=== PATIENT | female | born 1955 | race Caucasian/White ===

== ENCOUNTER 2016-11-04 00:02 | Inpatient (IN) | payer OTHER ==
[~2016-11-04] VITALS: Ht 147.3 cm; Wt 88.5 kg
[~2016-11-04 00:02] MED LIST: ACET50TAOT PO; BUPR150T3 PO; CYMB60CA3 PO; ELIQ5TAB PO; FURO40TA2 PO; OMEP20CA3 PO; PRED20TAB PO; PROA1AER IN; VITA100066 PO; VITA100072 PO; WELL100T2 PO; [UNRECOGNIZED DRUG - CODE] PO
[2016-11-04] MEDS ORDERED: HYDROmorphone HCL 1 MG/ML SYRINGE (J1170) As Ordered ONE (01:30)
[2016-11-04 01:45] LABS: BASO % 0.2 % (0.0-1.0); EOS # 0.1 K/mm3 (0.0-0.50); EOS % 0.5 % (0.0-3.0); LARGE UNSTAINED CELL # 0.2 K/mm3 (0.0-0.4); LARGE UNSTAINED CELL % 1.5 % (0.0-4.0); LYMPH # 0.9 K/mm3 (1.5-4.5); LYMPH % 6.8 % (24.0-44.0); MEAN CORPUSCULAR HEMOGLOBIN 29.1 pg (27.0-33.0); MEAN CORPUSCULAR HGB CONC 31.9 g/dl (32.0-36.5); MONO # 0.3 K/mm3 (0.0-0.8); MONO % 2.4 % (0.0-5.0); NEUTROPHILS % 88.6 % (36.0-66.0); PLATELET COUNT, AUTOMATED 229 k/mm3 (150-450); WHITE BLOOD COUNT 12.4 K/mm3 (4.0-10.0)
[2016-11-04 02:07] LABS: AMYLASE 16 U/L (25-115); ANION GAP 11 MEQ/L (8-16); BLOOD UREA NITROGEN 12 MG/DL (7-18); CARBON DIOXIDE LEVEL 24 MEQ/L (21-32); CHLORIDE LEVEL 105 MEQ/L (98-107); CREATININE FOR GFR 0.92 MG/DL (0.55-1.02); GLOMERULAR FILTRATION RATE > 60.0 (>45); GLUCOSE, FASTING 152 MG/DL (80-110); POTASSIUM SERUM 3.7 MEQ/L (3.5-5.1); SODIUM LEVEL 140 MEQ/L (136-145)
[2016-11-04] MEDS ORDERED: ISOVUE-370 76% 100ML VIAL (Q9967) As Ordered ONE (03:18)
--- NOTE | 2016-11-04 04:20 | REPUSA ---
CLINICAL HISTORY: Abdominal pain. TECHNIQUE: Multiple axial, sagittal and coronal CT images were obtained through the abdomen and pelvi s after administration of intravenous contrast material. COMMENTS: Comparison is made to the prior exam performed on 01/17/2016. Thickened mid aspect of the sigmoid colon. Associated mid sigmoid perforation and a 3.5x4.1 cm perisi gmoid abscess formation. Free air densities are limited to the perisigmoid fat. No other areas of pne umoperitoneum identified. Diffuse inflammatory thickening of the abdominal and pelvic fat. Diffusely dilated fluid filled small bowels. Diffuse thickening of the small bowel loops. Changes from prior gastric bypass surgery. Mild diffuse thickening of the wall of the bladder. Small amount of free fluid in the pelvis. The liver is mildly enlarged with decreased attenuation without mass or defect. There is no intra or extrahepatic biliary ductal dilatation. The spleen is normal. The gallbladder contains multiple galls tones. The pancreas is of normal contour and attenuation characteristics. There is no evidence of adr enal mass. Both kidneys demonstrate prompt and equal nephrograms. The kidneys are normal in size, shape and conf iguration. There is no evidence of renal or ureteral mass. No renal or ureteral calculi are identifie d. There is no hydroureter or hydronephrosis. No evidence for appendicitis. There is no evidence of intrinsic or extrinsic bladder mass. Images of the lung bases show no evidence of pleural or parenchymal mass. There are no pleural effusi ons. The bony structures are free of lytic or blastic lesions. Multilevel degenerative changes are seen in volving the thoracolumbar spine. Scattered calcifications are seen involving the aorta and major bran ches compatible with atherosclerosis. IMPRESSION: Mid sigmoid perforation. Probably perforated acute diverticulitis. Associated/underlying neoplastic p athology is not excluded. Adjacent free air densities which are limited to the perisigmoid fat. Findi ngs were not present on the prior exam. No other areas of pneumoperitoneum. Perisigmoid abscess formation. This was not present on prior exam. Small amount of free fluid in the pelvis. Diffuse inflammatory abdominal and pelvic fat stranding. Distended gallbladder. Multiple gallstones. Hepatomegaly with fatty liver infiltration. Thank you for your kind referral of this patient.
[2016-11-04 04:36] LABS: CALCIUM OXALATE CRYSTALS SMALL
[2016-11-04] MEDS ORDERED: BUPR15TASR PO (04:49)
[2016-11-04] MEDS ORDERED: GUAI1TAB PO (04:49)
[2016-11-04] MEDS ORDERED: LEVA500T PO (04:49)
[2016-11-04] MEDS ORDERED: ELIQ5TAB PO (04:49)
[2016-11-04] MEDS ORDERED: ALBU17IN INH (04:49)
[2016-11-04] MEDS ORDERED: ZOSYN 3.375 GM VIAL (J2543) As Ordered ONE (04:51)
[2016-11-04] MEDS ORDERED: HEPARIN SOD (PORCINE) 5000 UNITS/ML VIAL SC SCH (06:00)
[2016-11-04] MEDS ORDERED: MORPHINE 2 MG/ML 1ML SYRINGE As Ordered ONE (06:20)
[2016-11-04] MEDS ORDERED: metroNIDAZOLE/NACL 500MG(5MG/ML)100 ML BAG (S0030) As Ordered ONE ×2 (07:03→13:18)
[2016-11-04] MEDS: LR 1,000 ML IV SCH ×2 (08:40→18:38)
[2016-11-04] MEDS ORDERED: KETOROLAC 30 MG/ML VIAL (J1885) IV PRN (08:45)
[2016-11-04] MEDS ORDERED: NORCO, ANEXSIA 5/325MG TABLET (HYDROcodone/ACETAMINOPHEN) PO PRN (08:45)
[2016-11-04] MEDS ORDERED: ONDANSETRON 4MG/2ML VIAL (J2405) IV PRN (08:45)
[2016-11-04] MEDS ORDERED: MOM 30ML SUSPENSION UDC PO PRN (08:45)
[2016-11-04] MEDS ORDERED: MORPHINE 2 MG/ML 1ML SYRINGE IV PRN (08:45)
[2016-11-04] MEDS: buPROPion **SR TABLET** (ZYBAN) 150MG PO SCH (09:00)
[2016-11-04] MEDS: PANTOPRAZOLE 40MG TAB (PROTONIX) PO SCH (09:00)
[2016-11-04] MEDS: SENOKOT S TAB PO SCH ×2 (09:00→21:07)
[2016-11-04] MEDS: CYANOCOBALAMIN 500 MCG TAB PO SCH ×2 (09:00→17:37)
[2016-11-04] MEDS: CIPROFLOXACIN 400 MG in APPROPRIATE DILUENT 1 EA IV SCH ×2 (09:00→21:06)
[2016-11-04 09:34] LABS: INR 1.31
[2016-11-04] MEDS ORDERED: KETOROLAC 30 MG/ML VIAL (J1885) As Ordered ONE (09:55)
[2016-11-04 11:35] VITALS: BP 108/56
[2016-11-04] MEDS ORDERED: ALBUTEROL 90 MCG/ACT 8GM HFA INHALER INH PRN (12:15)
[2016-11-04] MEDS ORDERED: guaiFENesin ER 600 MG TAB PO PRN (12:15)
[2016-11-04] MEDS: metroNIDAZOLE 500 MG in APPROPRIATE DILUENT 1 EA IV SCH ×3 (13:00→23:50)
--- NOTE | 2016-11-04 13:24 | EDDOCDS ---
Physician Documentation [facility] Name: Melissa Peck Age: 61 yrs Sex: Female : 1955 Arrival Date: 11/04/2016 Time: 00:02 Bed Admit Hold Private MD: Disposition: 11/04/16 05:19 Hospitalization ordered by Satya Wall for Inpatient Admission. Preliminary diagnosis is Diverticulitis of large intestine with perforation and abscess without bleeding. - Bed requested for M PED. - Status is Inpatient Admission. hs1 - Condition is Stable. - Problem is new. - Symptoms have improved. Historical: - Allergies: Latex; - Home Meds: 1. Cymbalta 60 mg Oral cpDR 1 cap once daily 2. omeprazole 20 mg Oral TbEC daily 3. Wellbutrin 100 mg Oral tab 2 times per day 4. Eliquis 5 mg oral tab 1 tab 2 times per day 5. Levaquin 500 mg Oral tab 1 tab once daily 6. Mucinex 600 mg oral Ta12 1 tab every 12 hours - PMHx: Anxiety; GERD; Pneumonia; PE; - PSHx: ; Right knee arthroscopic surgery; Gastric Bypass; - Social history: Smoking status: Patient states was never smoker of tobacco. No barriers to communication noted, The patient speaks fluent [place], Speaks appropriately for age. - Family history: Not pertinent. - : The pt / caregiver states he / she is on anticoagulants: Eliquis Home medication list is obtained from the patient. - Exposure Risk Screening:: None identified. Vital Signs: 11/04 00:24 BP 106 / 53; Pulse 63; Resp 20; Temp 97.0(O); Pulse Ox 94% on R/A; Weight 88.45 kg / jmb 195 lbs (R); Height 4 ft. 10 in. (147.32 cm) (R); Pain 10/10; 02:05 BP 146 / 69; Pulse 83; Resp 18 S; Pulse Ox 100% on R/A; Pain 2/10; af2 06:21 BP 130 / 73; Pulse 107; Resp 18; Temp 99.3(O); Pulse Ox 94% on R/A; dinorah 10:40 BP 121 / 57; Pulse 102; Resp 18; Pulse Ox 96% ; Pain 1/10; hs1 12:45 BP 119 / 59; Pulse 85; Resp 18; Temp 95.6; Pulse Ox 95% ; mb9 00:24 Body Mass Index 40.75 (88.45 kg, 147.32 cm) halie MDM: 00:45 IV Saline Lock ordered. cs11 00:45 NS 0.9% 1000 ml IV at bolus once ordered. cs11 00:45 Dilaudid - HYDROmorphone 0.5 mg IVP once ordered. cs11 00:46 CBC with Diff Ordered. EDMS 00:46 MED Profile Ordered. EDMS 00:46 Lipase Ordered. EDMS 00:46 Amylase Ordered. EDMS 00:46 Urinalysis Ordered. EDMS 00:46 Urine Culture Ordered. EDMS 00:46 Lactic Acid (Zayas tube on ice) Ordered. EDMS 01:22 Financial registration complete. hs2 01:27 [facility] Payment Agreement was scanned into [employer] and attached to record. hs2 01:49 CBC with Diff Reviewed. cs11 02:16 MED Profile Reviewed. cs11 02:16 Lipase Reviewed. cs11 02:16 Amylase Reviewed. cs11 02:16 Lactic Acid (Zayas tube on ice) Reviewed. cs11 02:18 CT ABD & PELVIS: IV and Oral Contrast Ordered. EDMS 04:10 Dilaudid - HYDROmorphone 0.5 mg IVP once ordered. af2 04:25 metroNIDAZOLE 500 mg IV at 100 mL/hr once over 60 mins ordered. cs11 04:25 Piperacillin-Tazobactam 3.375 grams IVPB once over 30 mins; dilute in 50mL of NS or D5W cs11 ordered. 04:33 BED REQUEST+ADM ordered. EDMS 05:07 Urinalysis Reviewed. cs11 05:07 CT ABD & PELVIS: IV and Oral Contrast Reviewed. cs11 05:22 Admission Orders was scanned into [employer] and attached to record. tmm1 06:23 morphine 2 mg IVP once ordered. af2 08:11 LR Solution 1000 ml IV at 100 mL/hr once ordered. mcp 08:46 Admission / Observation Status ordered. EDMS 08:47 NPO DIET ordered. EDMS 08:47 PROTHROMBIN TIME PROFILE\E\INR Ordered. EDMS 09:36 T-Sheet-- Draft Copy was scanned into [employer] and attached to record. gb 12:04 CLEAR LIQUIDS DIET ordered. EDMS Administered Medications: 01:34 Drug: NS 0.9% 1000 ml [sodium chloride 0.9 % intravenous solution] Route: IV; Rate: af2 bolus; Site: left hand; 01:35 Drug: Dilaudid - HYDROmorphone 0.5 mg [hydromorphone 1 mg/mL injection syringe (0.5 af2 mL)] Route: IVP; Site: left hand; 06:17 Follow up: Response: Pain is decreased af2 04:17 Drug: Dilaudid - HYDROmorphone 0.5 mg [hydromorphone 1 mg/mL injection syringe (0.5 af2 mL)] Route: IVP; Site: right hand; 06:23 Follow up: Response: Pain is decreased af2 05:05 Drug: Piperacillin-Tazobactam 3.375 grams [piperacillin-tazobactam 3.375 gram af2 intravenous solution] Route: IVPB; Infused Over: 30 mins; Site: left hand; 06:57 Follow up: IV Status: Completed infusion af2 06:37 Drug: morphine 2 mg [morphine 2 mg/mL intravenous cartridge (1 mL)] Route: IVP; Site: af2 left hand; 06:57 Follow up: Response: Pain is decreased af2 07:08 Drug: metroNIDAZOLE 500 mg [metronidazole 500 mg/100 mL-sodium chloride(iso) af2 intravenous piggyback] Route: IV; Rate: 100 mL/hr; Infused Over: 60 mins; Site: left hand; 08:11 Drug: LR 1000 ml [lactated ringers intravenous solution] Route: IV; Rate: 100 mL/hr; [facility] Site: left hand; Signatures: Dispatcher [employer] Daxa Mcdonald RN RN [facility] Magdalena Reyna, Reg Reg Dinorah Keller RN RN hs1 Austin Grossman DO DO cs11 McLear, Melissa, CHARGE ENTRY CHARGE ENTRY tmm1 Merlin CrowellRN RN Annabel Buitrago RN RN sls2 Yulissa Parikh RN RN af2 Lizette Diaz, Reg Reg hs2 The chart was reviewed and I authenticate all verbal orders and agree with the evaluation and treatment provided.Corrections: (The following items were deleted from the chart) 12:13 08:46 CT GUIDE PERC DRAIN ABSCESS ordered. EDOK EDMS Attachments: 01:27 [facility] [place] hs2 05:22 Admission Orders tmm1 09:36 T-Sheet-- Draft Copy gb MTDD
--- NOTE | 2016-11-04 13:24 | EDDOCDS ---
Nurse's Notes [facility] Name: Melissa Peck Age: 61 yrs Sex: Female : 1955 Arrival Date: 11/04/2016 Time: 00:02 Bed Admit Hold Private MD: Diagnosis: Diverticulitis of large intestine with perforation and abscess without bleeding Presentation: 11/04 00:21 Presenting complaint: Patient states: Patient reports abdominal pain. Patient reports jmb symptoms started yesterday. Patient reports being at primary care provider's office today, also has pneumonia. Patient reports primary care provider reports its from the bibasilar pneumonia. Presenting complaint: Patient states: Patient reports that she feels it is from constipation but has not taken anything. Adult Sepsis Screening: The patient does not have new or worsening altered mentation. Patient's respiratory rate is less than 22. Systolic blood pressure is greater than 100. Patient has a qSOFA score of 0- Negative Sepsis Screen. Suicide/Homicide risk assessment- the patient denies having any suicidal and/or homicidal ideations and does not present with any other emotional, behavioral or mental health complaints. Status: Patient is not a public service director or dependent. Transition of care: patient was not received from another setting of care. 00:21 Acuity: CRYS Level 3 jmb 00:21 Method Of Arrival: Wheelchair jmb Triage Assessment: 00:24 General: Appears uncomfortable. Pain: Location: abdomen Pain currently is 10 out of 10 jmb on a pain scale. HIV screening NA for this visit Offered previously. Neurological: Level of Consciousness is awake, alert, obeys commands, Oriented to person, place, time, Speech is normal, Facial symmetry appears normal, Facial symmetry: tongue is midline. Respiratory: Airway is patent Respiratory effort is even, unlabored, Respiratory pattern is regular, symmetrical. GI: Abdomen is non- distended. Derm: Skin is pink, warm & dry. Musculoskeletal: Range of motion intact in all extremities. Historical: - Allergies: Latex; - Home Meds: 1. Cymbalta 60 mg Oral cpDR 1 cap once daily 2. omeprazole 20 mg Oral TbEC daily 3. Wellbutrin 100 mg Oral tab 2 times per day 4. Eliquis 5 mg oral tab 1 tab 2 times per day 5. Levaquin 500 mg Oral tab 1 tab once daily 6. Mucinex 600 mg oral Ta12 1 tab every 12 hours - PMHx: Anxiety; GERD; Pneumonia; PE; - PSHx: ; Right knee arthroscopic surgery; Gastric Bypass; - Social history: Smoking status: Patient states was never smoker of tobacco. No barriers to communication noted, The patient speaks fluent Honduran, Speaks appropriately for age. - Family history: Not pertinent. - : The pt / caregiver states he / she is on anticoagulants: Eliquis Home medication list is obtained from the patient. - Exposure Risk Screening:: None identified. Screenin:36 Screening information is obtained from the patient. Fall risk: No risks identified. af2 Assistance ADL's: requires no assistance with activities of daily living. Abuse/DV Screen: The patient / caregiver reports he/she is: not in a situation that causes fear, pain or injury. Nutritional screening: No deficits noted. Advance Directives: Currently, there is no health care proxy. home support is adequate. Assessment: 01:35 General: Appears in no apparent distress, comfortable, Behavior is appropriate for age, af2 cooperative. Neurological: Level of Consciousness is awake, alert, obeys commands, Oriented to person, place, time. Respiratory: Airway is patent Respiratory effort is even, unlabored. GI: Abdomen is non- distended Bowel sounds present X 4 quads. Abd is soft and non tender X 4 quads. Derm: Skin is normal. 02:30 General: Appears in no apparent distress, comfortable, Behavior is appropriate for age, af2 cooperative. Neurological: Level of Consciousness is awake, alert, obeys commands. Respiratory: Airway is patent Respiratory effort is even, unlabored. GI: Reports lower abdominal pain, upper abdominal pain. Derm: Skin is normal. 03:34 General: pt transported to ct at this time, tolerated procedure well. piv is patent. af2 assisted with ambulation to bathroom at this time. . 04:30 General: Appears in no apparent distress, comfortable, Behavior is appropriate for age, af2 cooperative. Neurological: Level of Consciousness is awake, alert, obeys commands, Oriented to person, place, time. GI: Reports lower abdominal pain, upper abdominal pain. Derm: Skin is normal. 05:30 General: Appears in no apparent distress, comfortable, Behavior is appropriate for age, af2 cooperative. Neurological: Level of Consciousness is awake, alert, obeys commands, Oriented to person, place, time. Respiratory: Airway is patent Respiratory effort is even, unlabored. GI: Reports lower abdominal pain, upper abdominal pain. Derm: Skin is normal. 06:38 General: Appears in no apparent distress, Behavior is cooperative, pt medicated for af2 pain per admit orders.. Neurological: Level of Consciousness is awake, alert, obeys commands. Respiratory: Airway is patent Respiratory effort is even, unlabored. Derm: Skin is normal. 07:54 General: Appears in no apparent distress, comfortable, Behavior is cooperative. mcp Neurological: No deficits noted. Respiratory: Airway is patent Respiratory effort is even, unlabored. GI: Abdomen is non- distended. Derm: Skin is pink, warm & dry. 08:45 General: Appears in no apparent distress, comfortable, Behavior is appropriate for age, hs1 cooperative, Patient resting in stretcher with no needs at present. Call szymanski within reach, family at bedside. . 09:45 General: Patient up and ambulating to rest room at this time. Patient states pain hs1 returning 4/10 at present. Pain medication to be administered per orders. Patient also to take morning medications at this time. Patient requests to rest again at this time. Nursing to continue to monitor. . 10:35 Reassessment: Patient states feeling better. Patient states symptoms have improved. hs1 General: Appears in no apparent distress, comfortable, Behavior is appropriate for age, cooperative. Pain: Location: abdomen Pain currently is 1 out of 10 on a pain scale. Respiratory: No deficits noted. GI: Denies nausea. 11:45 General: Appears in no apparent distress, comfortable, Behavior is appropriate for age, hs1 cooperative. Pain: Location: abdomen. Neurological: Level of Consciousness is awake, alert, obeys commands. Respiratory: Airway is patent Respiratory effort is even, unlabored. Derm: Skin is pink, warm & dry. normal. 12:38 Reassessment: Patient appears in no apparent distress at this time. Patient states hs1 feeling better. Patient states symptoms have improved. patient resting at present. No needs made known. . 13:10 Reassessment: Patient appears in no apparent distress at this time. Patient states hs1 feeling better. Patient states symptoms have improved. Pain: Location: abdomen Pain currently is 1 out of 10 on a pain scale. Vital Signs: 00:24 BP 106 / 53; Pulse 63; Resp 20; Temp 97.0(O); Pulse Ox 94% on R/A; Weight 88.45 kg (R); [facility] Height 4 ft. 10 in. (147.32 cm) (R); Pain 10/10; 02:05 BP 146 / 69; Pulse 83; Resp 18 S; Pulse Ox 100% on R/A; Pain 2/10; af2 06:21 BP 130 / 73; Pulse 107; Resp 18; Temp 99.3(O); Pulse Ox 94% on R/A; dinorah 10:40 BP 121 / 57; Pulse 102; Resp 18; Pulse Ox 96% ; Pain 1/10; hs1 12:45 BP 119 / 59; Pulse 85; Resp 18; Temp 95.6; Pulse Ox 95% ; mb9 00:24 Body Mass Index 40.75 (88.45 kg, 147.32 cm) [facility] Vitals: 00:24 Log In Time: November 04, 2016 at 00:00. [facility] ED Course: 00:03 Patient visited by Lm Noriega Reg. pm4 00:03 Patient moved to Waiting pm4 00:22 Triage Initiated b 00:29 Justine Sawyer,GUS is Primary Nurse. jmb 00:29 Yulissa Parikh RN is Primary Nurse. jmb 00:29 Patient moved to 14 [facility] 00:31 Austin Grossman DO is Attending Physician. cs11 00:31 Patient visited by Austin Grossman DO. cs11 01:05 Patient visited by Carmella Lmab, Blade Changer. jlm 01:05 Warm blanket given. jlm 01:27 [facility] Payment Agreement was scanned into [employer] and attached to record. hs2 01:29 Primary Nurse role handed off by Justine Sawyer,GUS dinorah 01:34 Lactic Acid (Zayas tube on ice) Sent. af2 01:34 Amylase Sent. af2 01:34 Lipase Sent. af2 01:34 MED Profile Sent. af2 01:34 CBC with Diff Sent. af2 01:36 The patient / caregiver is instructed regarding the plan of care and ED course. af2 01:36 Inserted saline lock: 22 gauge in left hand The patient tolerated the procedure well. af2 01:37 Patient visited by Yulissa Parikh RN. af2 02:06 Patient visited by Yulissa Parikh RN. af2 02:51 Patient visited by Yulissa Parikh RN. af2 02:52 Patient visited by Yulissa Parikh RN. af2 03:34 Patient visited by Yulissa Parikh RN. af2 03:35 Patient visited by Yulissa Parikh RN. af2 03:52 Patient visited by Yulissa Parikh RN. af2 03:52 Urine Culture Sent. af2 03:52 Urinalysis Sent. af2 04:25 Patient visited by Yulissa Parikh RN. af2 04:26 Patient moved to Admit Hold sls1 04:27 Patient moved to 14 sls1 04:54 CT ABD & PELVIS: IV and Oral Contrast Returned. EDMS 05:18 Satya Wall DO is Hospitalizing Provider. cs11 05:21 Patient moved to Admit Hold sls1 05:22 Admission Orders was scanned into [employer] and attached to record. tmm1 05:50 Patient visited by Yulissa Parikh RN. af2 06:21 Patient visited by Taty Haque PCA. dinorah 06:37 Discontinued IV lock intact, bleeding controlled, pressure dressing applied, No af2 redness/swelling at site. No procedures done that require assistance. 06:37 Inserted saline lock: 20 gauge in left hand The patient tolerated the procedure well. af2 06:38 Patient visited by Yulissa Parikh RN. af2 06:57 Mary Reid,RN is Primary Nurse. ck1 07:08 Patient visited by Yulissa Parikh RN. af2 07:22 Antoinette Sawyer RN is Primary Nurse. kcs 07:22 Patient moved to 18 kcs 07:55 Patient visited by Daxa Sanchez RN. mcp 07:55 IV is intact, is free of redness or swelling. with fluids infusing freely. mcp 09:03 Patient moved to Admit Hold js13 09:13 Primary Nurse role handed off by Yulissa Parikh RN kr3 09:13 Primary Nurse role handed off by Antoinette Sawyer RN kr3 09:36 T-Sheet-- Draft Copy was scanned into [employer] and attached to record. gb 10:53 Dinorah Keller, GUS is Primary Nurse. hs1 11:28 Patient visited by Dinorah Keller RN. hs1 11:44 Patient visited by Dinorah Keller RN. hs1 Administered Medications: 01:34 Drug: NS 0.9% 1000 ml [sodium chloride 0.9 % intravenous solution] Route: IV; Rate: af2 bolus; Site: left hand; 01:35 Drug: Dilaudid - HYDROmorphone 0.5 mg [hydromorphone 1 mg/mL injection syringe (0.5 af2 mL)] Route: IVP; Site: left hand; 06:17 Follow up: Response: Pain is decreased af2 04:17 Drug: Dilaudid - HYDROmorphone 0.5 mg [hydromorphone 1 mg/mL injection syringe (0.5 af2 mL)] Route: IVP; Site: right hand; 06:23 Follow up: Response: Pain is decreased af2 05:05 Drug: Piperacillin-Tazobactam 3.375 grams [piperacillin-tazobactam 3.375 gram af2 intravenous solution] Route: IVPB; Infused Over: 30 mins; Site: left hand; 06:57 Follow up: IV Status: Completed infusion af2 06:37 Drug: morphine 2 mg [morphine 2 mg/mL intravenous cartridge (1 mL)] Route: IVP; Site: af2 left hand; 06:57 Follow up: Response: Pain is decreased af2 07:08 Drug: metroNIDAZOLE 500 mg [metronidazole 500 mg/100 mL-sodium chloride(iso) af2 intravenous piggyback] Route: IV; Rate: 100 mL/hr; Infused Over: 60 mins; Site: left hand; 08:11 Drug: LR 1000 ml [lactated ringers intravenous solution] Route: IV; Rate: 100 mL/hr; mcp Site: left hand; Order Results: Lab Order: CBC with Diff; SPEC'M 11/04/16 01:37 Test: WHITE BLOOD COUNT; Value: 12.4; Range: 4.0-10.0; Abnormal: Above high normal; Units: K/mm3; Status: F Test: RED BLOOD COUNT; Value: 4.87; Range: 4.00-5.40; Units: M/mm3; Status: F Test: HEMOGLOBIN; Value: 14.1; Range: 12.0-16.0; Units: g/dl; Status: F Test: HEMATOCRIT; Value: 44.3; Range: 36.0-47.0; Units: %; Status: F Test: MEAN CORPUSCULAR VOLUME; Value: 91.0; Range: 80.0-96.0; Units: fl; Status: F Test: MEAN CORPUSCULAR HEMOGLOBIN; Value: 29.1; Range: 27.0-33.0; Units: pg; Status: F Test: MEAN CORPUSCULAR HGB CONC; Value: 31.9; Range: 32.0-36.5; Abnormal: Below low normal; Units: g/dl; Status: F Test: RED CELL DISTRIBUTION WIDTH; Value: 14.0; Range: 11.5-14.5; Units: %; Status: F Test: PLATELET COUNT, AUTOMATED; Value: 229; Range: 150-450; Units: k/mm3; Status: F Test: NEUTROPHILS %; Value: 88.6; Range: 36.0-66.0; Abnormal: Above high normal; Units: %; Status: F Test: LYMPH %; Value: 6.8; Range: 24.0-44.0; Abnormal: Below low normal; Units: %; Status: F Test: MONO %; Value: 2.4; Range: 0.0-5.0; Units: %; Status: F Test: EOS %; Value: 0.5; Range: 0.0-3.0; Units: %; Status: F Test: BASO %; Value: 0.2; Range: 0.0-1.0; Units: %; Status: F Test: LARGE UNSTAINED CELL %; Value: 1.5; Range: 0.0-4.0; Units: %; Status: F Test: NEUTROPHILS #; Value: 11.0; Range: 1.8-7.7; Abnormal: Above high normal; Units: K/mm3; Status: F Test: LYMPH #; Value: 0.9; Range: 1.5-4.5; Abnormal: Below low normal; Units: K/mm3; Status: F Test: MONO #; Value: 0.3; Range: 0.0-0.8; Units: K/mm3; Status: F Test: EOS #; Value: 0.1; Range: 0.0-0.50; Units: K/mm3; Status: F Test: BASO #; Value: 0.0; Range: 0.0-0.2; Units: K/mm3; Status: F Test: LARGE UNSTAINED CELL #; Value: 0.2; Range: 0.0-0.4; Units: K/mm3; Status: F Lab Order: MED Profile; [facility] 11/04/16 01:37 Test: GLUCOSE, FASTING; Value: 152; Range: 80-110; Abnormal: Above high normal; Units: MG/DL; Status: F Test: BLOOD UREA NITROGEN; Value: 12; Range: 7-18; Units: MG/DL; Status: F Test: CREATININE FOR GFR; Value: 0.92; Range: 0.55-1.02; Units: MG/DL; Status: F Test: GLOMERULAR FILTRATION RATE; Value: > 60.0; Range: >45; Status: F Test: SODIUM LEVEL; Value: 140; Range: 136-145; Units: MEQ/L; Status: F Test: POTASSIUM SERUM; Value: 3.7; Range: 3.5-5.1; Units: MEQ/L; Status: F Test: CHLORIDE LEVEL; Value: 105; Range: 98-107; Units: MEQ/L; Status: F Test: CARBON DIOXIDE LEVEL; Value: 24; Range: 21-32; Units: MEQ/L; Status: F Test: ANION GAP; Value: 11; Range: 8-16; Units: MEQ/L; Status: F Test: CALCIUM LEVEL; Value: 9.0; Range: 8.8-10.2; Units: MG/DL; Status: F Test Note: ; Units are mL/min/1.73 m2 Chronic Kidney Disease Staging per NKF: Stage I & II GFR >=60 Normal to Mildly Decreased Stage III GFR 30-59 Moderately Decreased Stage IV GFR 15-29 Severely Decreased Stage V GFR <15 Very Little GFR Left ESRD GFR <15 on POLEYARD SUPERVISOR Lab Order: Lipase; 11/04/16 01:37 Test: LIPASE; Value: 57; Range: 73-393; Abnormal: Below low normal; Units: U/L; Status: F Lab Order: Amylase; [facility] 11/04/16 01:37 Test: AMYLASE; Value: 16; Range: 25-115; Abnormal: Below low normal; Units: U/L; Status: F Lab Order: Urinalysis; [facility] 11/04/16 03:47 Test: APPEARANCE, URINE; Value: HAZY; Range: CLEAR; Status: F Test: COLOR, URINE; Value: YELLOW; Range: YELLOW; Status: F Test: PH,URINE; Value: 5.0; Range: 5.0-9.0; Units: UNITS; Status: F Test: SPECIFIC GRAVITY URINE AUTO; Value: 1.043; Range: 1.002-1.035; Status: F Test: PROTEIN, URINE AUTO; Value: NEGATIVE; Range: NEGATIVE; Units: mg/dL; Status: F Test: GLUCOSE, URINE (UA) AUTO; Value: NEGATIVE; Range: NEGATIVE; Units: mg/dL; Status: F Test: KETONE, URINE AUTO; Value: 2+; Range: NEGATIVE; Abnormal: Above high normal; Units: mg/dL; Status: F Test: UROBILINOGEN, URINE AUTO; Value: 4.0; Range: 0.0-2.0; Abnormal: Above high normal; Units: mg/dL; Status: F Test: BILIRUBIN, URINE AUTO; Value: NEGATIVE; Range: NEGATIVE; Status: F Test: NITRITE, URINE AUTO; Value: NEGATIVE; Range: NEGATIVE; Status: F Test: LEUKOCYTE ESTERASE, URINE AUTO; Value: TRACE; Range: NEGATIVE; Abnormal: Above high normal; Status: F Test: BLOOD, URINE BLOOD; Value: 2+; Range: NEGATIVE; Abnormal: Above high normal; Status: F Test: WBC, URINE AUTO; Value: 9; Range: 0-3; Abnormal: Above high normal; Units: /HPF; Status: F Test: RBC, URINE AUTO; Value: 13; Range: 0-3; Abnormal: Above high normal; Units: /HPF; Status: F Test: BACTERIA, URINE AUTO; Value: NEGATIVE; Range: NEGATIVE; Status: F Test: SQUAMOUS EPITHELIAL CELL UR AU; Value: 3; Range: 0-6; Units: /HPF; Status: F Test: MUCUS, URINE; Value: SMALL; Range: NEGATIVE; Status: F Test: HYALINE CAST, URINE AUTO; Value: 0; Range: 0-1; Units: /LPF; Status: F Test: CALCIUM OXALATE CRYSTALS; Value: SMALL; Range: NONE; Status: F Lab Order: Lactic Acid (Zayas tube on ice); SPEC'M 01/24/17 01:37 Test: LACTIC ACID LEVEL, LACTATE; Value: 1.9; Range: 0.4-2.0; Units: MMOL/L; Status: F Lab Order: PROTHROMBIN TIME PROFILE\E\INR; SPEC'M 11/04/16 09:17 Test: PROTHROMBIN TIME; Value: 16.4; Range: 12.3-14.5; Abnormal: Above high normal; Units: SECONDS; Status: F Test: INR; Value: 1.31; Status: F Test Note: ; THERAPUTIC HUMAN INR VALUES INDICATIONS NORMAL RANGES PROPHYLAXIS/TREATMENT OF: VENOUS THROMBOSIS 2.0-3.0 PULMONARY EMBOLISM 2.0-3.0 PREVENTION OF SYSTEMIC EMBOLISM FROM: TISSUE HEART VALVES 2.0-3.0 ACUTE MYOCARDIAL INFARCTION 2.0-3.0 VALVULAR HEART DISEASE 2.0-3.0 ATRIAL FIBRILLATION 2.0-3.0 MECHANICAL VALVES(HIGH RISK) 2.5-3.5 RECURRENT MYOCARDIAL INFARCTION 2.5-3.5 Radiology Order: CT ABD & PELVIS: IV and Oral Contrast Test: CT ABD & PELVIS: IV and Oral Contrast REASON FOR EXAMINATION: Abdomen Pain; ; CLINICAL HISTORY: Abdominal pain.; TECHNIQUE: Multiple axial, sagittal and coronal CT images were obtained through the abdomen and pelvi; s after administration of intravenous contrast material.; COMMENTS:; Comparison is made to the prior exam performed on 01/17/2016.; Thickened mid aspect of the sigmoid colon. Associated mid sigmoid perforation and a 3.5x4.1 cm perisi; gmoid abscess formation. Free air densities are limited to the perisigmoid fat. No other areas of pne; umoperitoneum identified. Diffuse inflammatory thickening of the abdominal and pelvic fat.; Diffusely dilated fluid filled small bowels.; Diffuse thickening of the small bowel loops.; Changes from prior gastric bypass surgery.; Mild diffuse thickening of the wall of the bladder.; Small amount of free fluid in the pelvis.; The liver is mildly enlarged with decreased attenuation without mass or defect. There is no intra or; extrahepatic biliary ductal dilatation. The spleen is normal. The gallbladder contains multiple galls; tones. The pancreas is of normal contour and attenuation characteristics. There is no evidence of adr; enal mass.; Both kidneys demonstrate prompt and equal nephrograms. The kidneys are normal in size, shape and conf; iguration. There is no evidence of renal or ureteral mass. No renal or ureteral calculi are identifie; d. There is no hydroureter or hydronephrosis.; No evidence for appendicitis.; There is no evidence of intrinsic or extrinsic bladder mass.; Images of the lung bases show no evidence of pleural or parenchymal mass. There are no pleural effusi; ons.; The bony structures are free of lytic or blastic lesions. Multilevel degenerative changes are seen in; volving the thoracolumbar spine. Scattered calcifications are seen involving the aorta and major bran; ches compatible with atherosclerosis.; IMPRESSION:; Mid sigmoid perforation. Probably perforated acute diverticulitis. Associated/underlying neoplastic p; athology is not excluded. Adjacent free air densities which are limited to the perisigmoid fat. Findi; ngs were not present on the prior exam.; No other areas of pneumoperitoneum.; Perisigmoid abscess formation. This was not present on prior exam.; Small amount of free fluid in the pelvis.; Diffuse inflammatory abdominal and pelvic fat stranding.; Distended gallbladder.; Multiple gallstones.; Hepatomegaly with fatty liver infiltration.; Thank you for your kind referral of this patient.; ; Outcome: 05:19 Decision to Hospitalize by Provider. cs11 13:11 Discharge Assessment: Patient awake, alert and oriented x 3. No cognitive and/or hs1 functional deficits noted. Patient verbalized understanding of disposition instructions. patient administered narcotics - no. The following High Risk Discharge criteria are identified: None. Admitted to Pediatrics accompanied by nurse, accompanied by tech, family with patient, via wheelchair, with chart. Condition: stable. CT Study completed. Property :Personal belongings accompany Pt. 13:23 Patient left the ED. hs1 Signatures: Dispatcher [employer] EDMS Keily Myers RN Daxa Chambers RN RN mcp Barnhardt, Gloria, Reg Reg Mary Sanders RN RN ck1 Ariadne Saenz RN RN kr3 Dinorah Keller RN RN hs1 Taty Haque, COTTON SAMPLER COTTON SAMPLER dinorah Danyell Farooq RN RN sls1 Kala Renner RN RN js13 Austin Grossman DO DO cs11 McLear, Melissa, COTTON SAMPLER COTTON SAMPLER tmm1 Merlin Crowell,RN RN Carmella Lockwood, Blade Changer Unit sravanm Todd Zelaya,RN RN mb9 Yulissa Parikh RN RN af2 Lizette Diaz, Reg Reg hs2 Lm Noriega, Reg Reg pm4 MTDD
[2016-11-04 13:45] VITALS: BP 123/54
--- NOTE | 2016-11-04 16:23 | HPE ---
DATE OF ADMISSION: 11/04/2016 CHIEF COMPLAINT: Abdominal pain. HISTORY OF PRESENT ILLNESS: The patient is a 61-year-old female presents with some shortness of breath that started last Thursday. She went to her primary who evaluated her and thought that she had bilateral pneumonias which she has had previously so she was started on Levaquin outpatient and told to followup as needed. Over the weekend she started to feel worse. No fevers. No nausea or vomiting but she started to develop lower abdominal pain that started to radiate towards the left side. With the pain getting worse she came into the emergency room thinking that she may have been constipated. However, CT scan demonstrated that she had likely perforated diverticulitis. Therefore I was called to evaluate. She claims that she has had a colonoscopy within the last couple of years that was positive for diverticulosis in the sigmoid colon, no history of diverticulitis for her in the past. No problems with her bowel movements or blood in the past. Her last bowel movement was yesterday. There was no blood in that as well and no other recent sicknesses. PAST MEDICAL HISTORY: Anxiety, gastroesophageal reflux disease, pneumonia, history of pulmonary embolus (PE). PAST SURGICAL HISTORY: section, right knee arthroscopic surgery, gastric bypass. SOCIAL HISTORY: Denies any drug, alcohol, tobacco abuse. FAMILY HISTORY: Noncontributory. ALLERGIES: LATEX. HOME MEDICATIONS: - Cymbalta - omeprazole - Wellbutrin - Eliquis - Levaquin - Mucinex REVIEW OF SYSTEMS: Pertinent positives and negatives as stated in history of present illness (HPI). PHYSICAL EXAMINATION: GENERAL: Patient is alert and oriented times three. No acute distress. VITAL SIGNS: Temperature 99.4, pulse 96, respirations 20, blood pressure 108/56, pulse oximetry 93% room air. HEENT: Pupils equally round and reactive to light and accommodation. HEART: S1, S2, regular rate and rhythm. LUNGS: Clear to auscultation bilaterally. ABDOMEN: Soft, tender to palpation left lower quadrant. Localized guarding. No rebounding, guarding or rigidity diffusely. No signs of peritonitis. Bowel sounds positive. EXTREMITIES: No clubbing, cyanosis or edema. LABORATORY DATA: White count 12.4, hemoglobin 14.1, platelets 229, INR 1.31, potassium 3.7, lactic acid 1.9, lipase 57. IMAGING STUDIES: CT abdomen and pelvis shows midsigmoid perforation, likely acute perforated diverticulitis. There is an associated abscess 3.5 x 4.1 cm. No signs of free air throughout the abdomen. There is diffuse inflammatory abdominal and pelvic fat stranding. ASSESSMENT/PLAN: The patient is a 61-year-old female with an acute episode of complicated diverticulitis with pericolonic abscess and a possibly developing pelvic abscess. Currently the patient's pain is well-controlled in the emergency room (ER). No fevers. She has not had any previous episodes of this in the past that she is aware of. I have discussed her CT scan with radiology however, they do not feel that she is a candidate for drainage at this time due to its location, they will be unable to access it. Therefore plan at this time would be keep her on a clear liquid diet, will keep her on IV antibiotics and IV fluids. She will be allowed to ambulate in the halls. Will watch her for the next 48-72 hours to make sure that her white count returns to normal and her pain resolves completely. Once this happens she will be advanced to a low-residue low fiber diet for the next 4 weeks, to followup with me as an outpatient to discuss possible elective surgery in the future. However, if she does not improve over the next 48 hours, then we may consider repeat CT scan to see if this abscess has increased in size or changed location to a point that would be amenable to having a drain placed.
[2016-11-04] MEDS: VITAMIN D 1,000 INTERNATIONAL UNITS TABLET PO SCH (17:37)
[2016-11-04 20:00] VITALS: BP 159/77
[2016-11-04] MEDS: APIXABAN 5 MG TAB (ELIQUIS) PO SCH (21:07)
[2016-11-04] MEDS: DULoxetine 30 MG CAP (CYMBALTA) PO SCH (21:07)
[2016-11-05] VITALS: BP 127/60
[2016-11-05] MEDS: ACETAMINOPHEN TAB 650MG DOSE (2X325MG) PO PRN ×2 (04:12→16:09)
[2016-11-05] MEDS: LR 1,000 ML IV SCH ×2 (04:12→12:26)
[2016-11-05] MEDS: metroNIDAZOLE 500 MG in APPROPRIATE DILUENT 1 EA IV SCH ×3 (06:17→18:33)
[2016-11-05 08:00] VITALS: BP 132/63
[2016-11-05 08:16] LABS: ANION GAP 7 MEQ/L (8-16); BLOOD UREA NITROGEN 12 MG/DL (7-18); CALCIUM LEVEL 8.6 MG/DL (8.8-10.2); CARBON DIOXIDE LEVEL 28 MEQ/L (21-32); CHLORIDE LEVEL 108 MEQ/L (98-107); CREATININE FOR GFR 0.82 MG/DL (0.55-1.02); GLOMERULAR FILTRATION RATE > 60.0 (>45); GLUCOSE, FASTING 116 MG/DL (80-110); MAGNESIUM LEVEL 2.1 MG/DL (1.8-2.4); POTASSIUM SERUM 3.6 MEQ/L (3.5-5.1); SODIUM LEVEL 143 MEQ/L (136-145)
[2016-11-05 08:44] LABS: MEAN CORPUSCULAR HEMOGLOBIN 29.9 pg (27.0-33.0); MEAN CORPUSCULAR HGB CONC 32.8 g/dl (32.0-36.5); MEAN CORPUSCULAR VOLUME 91.2 fl (80.0-96.0); WHITE BLOOD COUNT 15.6 K/mm3 (4.0-10.0)
[2016-11-05] MEDS: CYANOCOBALAMIN 500 MCG TAB PO SCH (09:09)
[2016-11-05] MEDS: CIPROFLOXACIN 400 MG in APPROPRIATE DILUENT 1 EA IV SCH ×2 (09:09→21:02)
[2016-11-05] MEDS: buPROPion **SR TABLET** (ZYBAN) 150MG PO SCH (09:10)
[2016-11-05] MEDS: VITAMIN D 1,000 INTERNATIONAL UNITS TABLET PO SCH (09:10)
[2016-11-05] MEDS: PANTOPRAZOLE 40MG TAB (PROTONIX) PO SCH (09:10)
[2016-11-05] MEDS: SENOKOT S TAB PO SCH ×2 (09:10→21:00)
[2016-11-05 16:00] VITALS: BP 128/59
[2016-11-05 20:00] VITALS: BP 124/71
[2016-11-05] MEDS: DULoxetine 30 MG CAP (CYMBALTA) PO SCH (21:01)
[2016-11-05] MEDS: APIXABAN 5 MG TAB (ELIQUIS) PO SCH (21:02)
[2016-11-06 00:30] VITALS: BP 126/58
[2016-11-06] MEDS: metroNIDAZOLE 500 MG in APPROPRIATE DILUENT 1 EA IV SCH ×4 (00:36→18:33)
[2016-11-06] MEDS: LR 1,000 ML IV SCH (00:36)
[2016-11-06 07:09] LABS: MEAN CORPUSCULAR HEMOGLOBIN 28.8 pg (27.0-33.0); MEAN CORPUSCULAR HGB CONC 30.9 g/dl (32.0-36.5); RED CELL DISTRIBUTION WIDTH 14.8 % (11.5-14.5); WHITE BLOOD COUNT 15.3 K/mm3 (4.0-10.0)
[2016-11-06 07:16] LABS: ANION GAP 8 MEQ/L (8-16); BLOOD UREA NITROGEN 6 MG/DL (7-18); CALCIUM LEVEL 8.4 MG/DL (8.8-10.2); CARBON DIOXIDE LEVEL 27 MEQ/L (21-32); CHLORIDE LEVEL 109 MEQ/L (98-107); CREATININE FOR GFR 0.62 MG/DL (0.55-1.02); GLOMERULAR FILTRATION RATE > 60.0 (>45); GLUCOSE, FASTING 109 MG/DL (80-110); POTASSIUM SERUM 3.6 MEQ/L (3.5-5.1); SODIUM LEVEL 144 MEQ/L (136-145)
[2016-11-06] MEDS: PANTOPRAZOLE 40MG TAB (PROTONIX) PO SCH (08:23)
[2016-11-06] MEDS: KCL 10MEQ IN D5/0.45NS 1000ML 1,000 ML IV SCH (08:23)
[2016-11-06] MEDS: CYANOCOBALAMIN 500 MCG TAB PO SCH (08:23)
[2016-11-06] MEDS: SENOKOT S TAB PO SCH ×2 (08:23→21:00)
[2016-11-06] MEDS: VITAMIN D 1,000 INTERNATIONAL UNITS TABLET PO SCH (08:24)
[2016-11-06] MEDS: CIPROFLOXACIN 400 MG in APPROPRIATE DILUENT 1 EA IV SCH ×2 (08:24→21:35)
[2016-11-06] MEDS: buPROPion **SR TABLET** (ZYBAN) 150MG PO SCH (08:24)
[2016-11-06 08:25] VITALS: BP 129/62
[2016-11-06 12:30] VITALS: BP 140/60
--- NOTE | 2016-11-06 14:23 | EDDOCDS ---
Physician Documentation [facility] Name: Melissa Peck Age: 61 yrs Sex: Female : 1955 Arrival Date: 11/04/2016 Time: 00:02 Bed Admit Hold Private MD: Disposition: 11/04/16 05:19 Hospitalization ordered by Satya Wall for Inpatient Admission. Preliminary diagnosis is Diverticulitis of large intestine with perforation and abscess without bleeding. - Bed requested for M PED. - Status is Inpatient Admission. hs1 - Condition is Stable. - Problem is new. - Symptoms have improved. Historical: - Allergies: Latex; - Home Meds: 1. Cymbalta 60 mg Oral cpDR 1 cap once daily 2. omeprazole 20 mg Oral TbEC daily 3. Wellbutrin 100 mg Oral tab 2 times per day 4. Eliquis 5 mg oral tab 1 tab 2 times per day 5. Levaquin 500 mg Oral tab 1 tab once daily 6. Mucinex 600 mg oral Ta12 1 tab every 12 hours - PMHx: Anxiety; GERD; Pneumonia; PE; - PSHx: ; Right knee arthroscopic surgery; Gastric Bypass; - Social history: Smoking status: Patient states was never smoker of tobacco. No barriers to communication noted, The patient speaks fluent Ethiopian, Speaks appropriately for age. - Family history: Not pertinent. - : The pt / caregiver states he / she is on anticoagulants: Eliquis Home medication list is obtained from the patient. - Exposure Risk Screening:: None identified. Vital Signs: 11/04 00:24 BP 106 / 53; Pulse 63; Resp 20; Temp 97.0(O); Pulse Ox 94% on R/A; Weight 88.45 kg / jmb 195 lbs (R); Height 4 ft. 10 in. (147.32 cm) (R); Pain 10/10; 02:05 BP 146 / 69; Pulse 83; Resp 18 S; Pulse Ox 100% on R/A; Pain 2/10; af2 06:21 BP 130 / 73; Pulse 107; Resp 18; Temp 99.3(O); Pulse Ox 94% on R/A; dinorah 10:40 BP 121 / 57; Pulse 102; Resp 18; Pulse Ox 96% ; Pain 1/10; hs1 12:45 BP 119 / 59; Pulse 85; Resp 18; Temp 95.6; Pulse Ox 95% ; mb9 00:24 Body Mass Index 40.75 (88.45 kg, 147.32 cm) halie MDM: 00:45 IV Saline Lock ordered. cs11 00:45 NS 0.9% 1000 ml IV at bolus once ordered. cs11 00:45 Dilaudid - HYDROmorphone 0.5 mg IVP once ordered. cs11 00:46 CBC with Diff Ordered. EDMS 00:46 MED Profile Ordered. EDMS 00:46 Lipase Ordered. EDMS 00:46 Amylase Ordered. EDMS 00:46 Urinalysis Ordered. EDMS 00:46 Urine Culture Ordered. EDMS 00:46 Lactic Acid (Zayas tube on ice) Ordered. EDMS 01:22 Financial registration complete. hs2 01:27 [facility] Payment Agreement was scanned into [employer] and attached to record. hs2 01:49 CBC with Diff Reviewed. cs11 02:16 MED Profile Reviewed. cs11 02:16 Lipase Reviewed. cs11 02:16 Amylase Reviewed. cs11 02:16 Lactic Acid (Zayas tube on ice) Reviewed. cs11 02:18 CT ABD & PELVIS: IV and Oral Contrast Ordered. EDMS 04:10 Dilaudid - HYDROmorphone 0.5 mg IVP once ordered. af2 04:25 metroNIDAZOLE 500 mg IV at 100 mL/hr once over 60 mins ordered. cs11 04:25 Piperacillin-Tazobactam 3.375 grams IVPB once over 30 mins; dilute in 50mL of NS or D5W cs11 ordered. 04:33 BED REQUEST+ADM ordered. EDMS 05:07 Urinalysis Reviewed. cs11 05:07 CT ABD & PELVIS: IV and Oral Contrast Reviewed. cs11 05:22 Admission Orders was scanned into [employer] and attached to record. tmm1 06:23 morphine 2 mg IVP once ordered. af2 08:11 LR Solution 1000 ml IV at 100 mL/hr once ordered. mcp 08:46 Admission / Observation Status ordered. EDMS 08:47 NPO DIET ordered. EDMS 08:47 PROTHROMBIN TIME PROFILE\E\INR Ordered. EDMS 09:36 T-Sheet-- Draft Copy was scanned into [employer] and attached to record. gb 12:04 CLEAR LIQUIDS DIET ordered. EDMS Administered Medications: 01:34 Drug: NS 0.9% 1000 ml [sodium chloride 0.9 % intravenous solution] Route: IV; Rate: af2 bolus; Site: left hand; 01:35 Drug: Dilaudid - HYDROmorphone 0.5 mg [hydromorphone 1 mg/mL injection syringe (0.5 af2 mL)] Route: IVP; Site: left hand; 06:17 Follow up: Response: Pain is decreased af2 04:17 Drug: Dilaudid - HYDROmorphone 0.5 mg [hydromorphone 1 mg/mL injection syringe (0.5 af2 mL)] Route: IVP; Site: right hand; 06:23 Follow up: Response: Pain is decreased af2 05:05 Drug: Piperacillin-Tazobactam 3.375 grams [piperacillin-tazobactam 3.375 gram af2 intravenous solution] Route: IVPB; Infused Over: 30 mins; Site: left hand; 06:57 Follow up: IV Status: Completed infusion af2 06:37 Drug: morphine 2 mg [morphine 2 mg/mL intravenous cartridge (1 mL)] Route: IVP; Site: af2 left hand; 06:57 Follow up: Response: Pain is decreased af2 07:08 Drug: metroNIDAZOLE 500 mg [metronidazole 500 mg/100 mL-sodium chloride(iso) af2 intravenous piggyback] Route: IV; Rate: 100 mL/hr; Infused Over: 60 mins; Site: left hand; 08:11 Drug: LR 1000 ml [lactated ringers intravenous solution] Route: IV; Rate: 100 mL/hr; [facility] Site: left hand; Signatures: Dispatcher [employer] Daxa Mcdonald RN RN [facility] Magdalena Reyna, Reg Reg Dinorah Keller RN RN hs1 Austin Grossman DO DO cs11 McLear, Melissa, PRECISION LENS TECHNICIAN PRECISION LENS TECHNICIAN tmm1 Merlin CrowellRN RN Annabel Buitrago RN RN sls2 Yulissa Parikh RN RN af2 Lizette Diaz, Reg Reg hs2 The chart was reviewed and I authenticate all verbal orders and agree with the evaluation and treatment provided.Corrections: (The following items were deleted from the chart) 12:13 08:46 CT GUIDE PERC DRAIN ABSCESS ordered. EDKY EDMS Attachments: 01:27 [facility] Payment Agreement hs2 05:22 Admission Orders tmm1 09:36 T-Sheet-- Draft Copy gb Chart Complete MTDD
--- NOTE | 2016-11-06 14:23 | EDDOCDS ---
Physician Documentation [facility] Name: Melissa Peck Age: 61 yrs Sex: Female : 1955 Arrival Date: 11/04/2016 Time: 00:02 Bed Admit Hold Private MD: Disposition: 11/04/16 05:19 Hospitalization ordered by Satya Wall for Inpatient Admission. Preliminary diagnosis is Diverticulitis of large intestine with perforation and abscess without bleeding. - Bed requested for M PED. - Status is Inpatient Admission. hs1 - Condition is Stable. - Problem is new. - Symptoms have improved. Historical: - Allergies: Latex; - Home Meds: 1. Cymbalta 60 mg Oral cpDR 1 cap once daily 2. omeprazole 20 mg Oral TbEC daily 3. Wellbutrin 100 mg Oral tab 2 times per day 4. Eliquis 5 mg oral tab 1 tab 2 times per day 5. Levaquin 500 mg Oral tab 1 tab once daily 6. Mucinex 600 mg oral Ta12 1 tab every 12 hours - PMHx: Anxiety; GERD; Pneumonia; PE; - PSHx: ; Right knee arthroscopic surgery; Gastric Bypass; - Social history: Smoking status: Patient states was never smoker of tobacco. No barriers to communication noted, The patient speaks fluent [place], Speaks appropriately for age. - Family history: Not pertinent. - : The pt / caregiver states he / she is on anticoagulants: Eliquis Home medication list is obtained from the patient. - Exposure Risk Screening:: None identified. Vital Signs: 11/04 00:24 BP 106 / 53; Pulse 63; Resp 20; Temp 97.0(O); Pulse Ox 94% on R/A; Weight 88.45 kg / jmb 195 lbs (R); Height 4 ft. 10 in. (147.32 cm) (R); Pain 10/10; 02:05 BP 146 / 69; Pulse 83; Resp 18 S; Pulse Ox 100% on R/A; Pain 2/10; af2 06:21 BP 130 / 73; Pulse 107; Resp 18; Temp 99.3(O); Pulse Ox 94% on R/A; dinorah 10:40 BP 121 / 57; Pulse 102; Resp 18; Pulse Ox 96% ; Pain 1/10; hs1 12:45 BP 119 / 59; Pulse 85; Resp 18; Temp 95.6; Pulse Ox 95% ; mb9 00:24 Body Mass Index 40.75 (88.45 kg, 147.32 cm) halie MDM: 00:45 IV Saline Lock ordered. cs11 00:45 NS 0.9% 1000 ml IV at bolus once ordered. cs11 00:45 Dilaudid - HYDROmorphone 0.5 mg IVP once ordered. cs11 00:46 CBC with Diff Ordered. EDMS 00:46 MED Profile Ordered. EDMS 00:46 Lipase Ordered. EDMS 00:46 Amylase Ordered. EDMS 00:46 Urinalysis Ordered. EDMS 00:46 Urine Culture Ordered. EDMS 00:46 Lactic Acid (Zayas tube on ice) Ordered. EDMS 01:22 Financial registration complete. hs2 01:27 [facility] Payment Agreement was scanned into [employer] and attached to record. hs2 01:49 CBC with Diff Reviewed. cs11 02:16 MED Profile Reviewed. cs11 02:16 Lipase Reviewed. cs11 02:16 Amylase Reviewed. cs11 02:16 Lactic Acid (Zayas tube on ice) Reviewed. cs11 02:18 CT ABD & PELVIS: IV and Oral Contrast Ordered. EDMS 04:10 Dilaudid - HYDROmorphone 0.5 mg IVP once ordered. af2 04:25 metroNIDAZOLE 500 mg IV at 100 mL/hr once over 60 mins ordered. cs11 04:25 Piperacillin-Tazobactam 3.375 grams IVPB once over 30 mins; dilute in 50mL of NS or D5W cs11 ordered. 04:33 BED REQUEST+ADM ordered. EDMS 05:07 Urinalysis Reviewed. cs11 05:07 CT ABD & PELVIS: IV and Oral Contrast Reviewed. cs11 05:22 Admission Orders was scanned into [employer] and attached to record. tmm1 06:23 morphine 2 mg IVP once ordered. af2 08:11 LR Solution 1000 ml IV at 100 mL/hr once ordered. mcp 08:46 Admission / Observation Status ordered. EDMS 08:47 NPO DIET ordered. EDMS 08:47 PROTHROMBIN TIME PROFILE\E\INR Ordered. EDMS 09:36 T-Sheet-- Draft Copy was scanned into [employer] and attached to record. gb 12:04 CLEAR LIQUIDS DIET ordered. EDMS Administered Medications: 01:34 Drug: NS 0.9% 1000 ml [sodium chloride 0.9 % intravenous solution] Route: IV; Rate: af2 bolus; Site: left hand; 01:35 Drug: Dilaudid - HYDROmorphone 0.5 mg [hydromorphone 1 mg/mL injection syringe (0.5 af2 mL)] Route: IVP; Site: left hand; 06:17 Follow up: Response: Pain is decreased af2 04:17 Drug: Dilaudid - HYDROmorphone 0.5 mg [hydromorphone 1 mg/mL injection syringe (0.5 af2 mL)] Route: IVP; Site: right hand; 06:23 Follow up: Response: Pain is decreased af2 05:05 Drug: Piperacillin-Tazobactam 3.375 grams [piperacillin-tazobactam 3.375 gram af2 intravenous solution] Route: IVPB; Infused Over: 30 mins; Site: left hand; 06:57 Follow up: IV Status: Completed infusion af2 06:37 Drug: morphine 2 mg [morphine 2 mg/mL intravenous cartridge (1 mL)] Route: IVP; Site: af2 left hand; 06:57 Follow up: Response: Pain is decreased af2 07:08 Drug: metroNIDAZOLE 500 mg [metronidazole 500 mg/100 mL-sodium chloride(iso) af2 intravenous piggyback] Route: IV; Rate: 100 mL/hr; Infused Over: 60 mins; Site: left hand; 08:11 Drug: LR 1000 ml [lactated ringers intravenous solution] Route: IV; Rate: 100 mL/hr; [facility] Site: left hand; Signatures: Dispatcher [employer] Daxa Mcdonald RN RN [facility] Magdalena Reyna, Reg Reg Dinorah Keller RN RN hs1 Austin Grossman DO DO cs11 McLear, Melissa, STOREHOUSE CLERK STOREHOUSE CLERK tmm1 Merlin CrowellRN RN Annabel Buitrago RN RN sls2 Yulissa Parikh RN RN af2 Lizette Diaz, Reg Reg hs2 The chart was reviewed and I authenticate all verbal orders and agree with the evaluation and treatment provided.Corrections: (The following items were deleted from the chart) 12:13 08:46 CT GUIDE PERC DRAIN ABSCESS ordered. EDMN EDMS Attachments: 01:27 [email or web address] Payment Agreement hs2 05:22 Admission Orders tmm1 09:36 T-Sheet-- Draft Copy gb Chart Complete MTDD
--- NOTE | 2016-11-06 14:25 | EDDOCDS ---
Nurse's Notes [facility] Name: Melissa Peck Age: 61 yrs Sex: Female : 1955 Arrival Date: 11/04/2016 Time: 00:02 Bed Admit Hold Private MD: Diagnosis: Diverticulitis of large intestine with perforation and abscess without bleeding Presentation: 11/04 00:21 Presenting complaint: Patient states: Patient reports abdominal pain. Patient reports jmb symptoms started yesterday. Patient reports being at primary care provider's office today, also has pneumonia. Patient reports primary care provider reports its from the bibasilar pneumonia. Presenting complaint: Patient states: Patient reports that she feels it is from constipation but has not taken anything. Adult Sepsis Screening: The patient does not have new or worsening altered mentation. Patient's respiratory rate is less than 22. Systolic blood pressure is greater than 100. Patient has a qSOFA score of 0- Negative Sepsis Screen. Suicide/Homicide risk assessment- the patient denies having any suicidal and/or homicidal ideations and does not present with any other emotional, behavioral or mental health complaints. Status: Patient is not a service engineer or dependent. Transition of care: patient was not received from another setting of care. 00:21 Acuity: CRYS Level 3 jmb 00:21 Method Of Arrival: Wheelchair jmb Triage Assessment: 00:24 General: Appears uncomfortable. Pain: Location: abdomen Pain currently is 10 out of 10 jmb on a pain scale. HIV screening NA for this visit Offered previously. Neurological: Level of Consciousness is awake, alert, obeys commands, Oriented to person, place, time, Speech is normal, Facial symmetry appears normal, Facial symmetry: tongue is midline. Respiratory: Airway is patent Respiratory effort is even, unlabored, Respiratory pattern is regular, symmetrical. GI: Abdomen is non- distended. Derm: Skin is pink, warm & dry. Musculoskeletal: Range of motion intact in all extremities. Historical: - Allergies: Latex; - Home Meds: 1. Cymbalta 60 mg Oral cpDR 1 cap once daily 2. omeprazole 20 mg Oral TbEC daily 3. Wellbutrin 100 mg Oral tab 2 times per day 4. Eliquis 5 mg oral tab 1 tab 2 times per day 5. Levaquin 500 mg Oral tab 1 tab once daily 6. Mucinex 600 mg oral Ta12 1 tab every 12 hours - PMHx: Anxiety; GERD; Pneumonia; PE; - PSHx: ; Right knee arthroscopic surgery; Gastric Bypass; - Social history: Smoking status: Patient states was never smoker of tobacco. No barriers to communication noted, The patient speaks fluent Egyptian, Speaks appropriately for age. - Family history: Not pertinent. - : The pt / caregiver states he / she is on anticoagulants: Eliquis Home medication list is obtained from the patient. - Exposure Risk Screening:: None identified. Screenin:36 Screening information is obtained from the patient. Fall risk: No risks identified. af2 Assistance ADL's: requires no assistance with activities of daily living. Abuse/DV Screen: The patient / caregiver reports he/she is: not in a situation that causes fear, pain or injury. Nutritional screening: No deficits noted. Advance Directives: Currently, there is no health care proxy. home support is adequate. Assessment: 01:35 General: Appears in no apparent distress, comfortable, Behavior is appropriate for age, af2 cooperative. Neurological: Level of Consciousness is awake, alert, obeys commands, Oriented to person, place, time. Respiratory: Airway is patent Respiratory effort is even, unlabored. GI: Abdomen is non- distended Bowel sounds present X 4 quads. Abd is soft and non tender X 4 quads. Derm: Skin is normal. 02:30 General: Appears in no apparent distress, comfortable, Behavior is appropriate for age, af2 cooperative. Neurological: Level of Consciousness is awake, alert, obeys commands. Respiratory: Airway is patent Respiratory effort is even, unlabored. GI: Reports lower abdominal pain, upper abdominal pain. Derm: Skin is normal. 03:34 General: pt transported to ct at this time, tolerated procedure well. piv is patent. af2 assisted with ambulation to bathroom at this time. . 04:30 General: Appears in no apparent distress, comfortable, Behavior is appropriate for age, af2 cooperative. Neurological: Level of Consciousness is awake, alert, obeys commands, Oriented to person, place, time. GI: Reports lower abdominal pain, upper abdominal pain. Derm: Skin is normal. 05:30 General: Appears in no apparent distress, comfortable, Behavior is appropriate for age, af2 cooperative. Neurological: Level of Consciousness is awake, alert, obeys commands, Oriented to person, place, time. Respiratory: Airway is patent Respiratory effort is even, unlabored. GI: Reports lower abdominal pain, upper abdominal pain. Derm: Skin is normal. 06:38 General: Appears in no apparent distress, Behavior is cooperative, pt medicated for af2 pain per admit orders.. Neurological: Level of Consciousness is awake, alert, obeys commands. Respiratory: Airway is patent Respiratory effort is even, unlabored. Derm: Skin is normal. 07:54 General: Appears in no apparent distress, comfortable, Behavior is cooperative. mcp Neurological: No deficits noted. Respiratory: Airway is patent Respiratory effort is even, unlabored. GI: Abdomen is non- distended. Derm: Skin is pink, warm & dry. 08:45 General: Appears in no apparent distress, comfortable, Behavior is appropriate for age, hs1 cooperative, Patient resting in stretcher with no needs at present. Call szymanski within reach, family at bedside. . 09:45 General: Patient up and ambulating to rest room at this time. Patient states pain hs1 returning 4/10 at present. Pain medication to be administered per orders. Patient also to take morning medications at this time. Patient requests to rest again at this time. Nursing to continue to monitor. . 10:35 Reassessment: Patient states feeling better. Patient states symptoms have improved. hs1 General: Appears in no apparent distress, comfortable, Behavior is appropriate for age, cooperative. Pain: Location: abdomen Pain currently is 1 out of 10 on a pain scale. Respiratory: No deficits noted. GI: Denies nausea. 11:45 General: Appears in no apparent distress, comfortable, Behavior is appropriate for age, hs1 cooperative. Pain: Location: abdomen. Neurological: Level of Consciousness is awake, alert, obeys commands. Respiratory: Airway is patent Respiratory effort is even, unlabored. Derm: Skin is pink, warm & dry. normal. 12:38 Reassessment: Patient appears in no apparent distress at this time. Patient states hs1 feeling better. Patient states symptoms have improved. patient resting at present. No needs made known. . 13:10 Reassessment: Patient appears in no apparent distress at this time. Patient states hs1 feeling better. Patient states symptoms have improved. Pain: Location: abdomen Pain currently is 1 out of 10 on a pain scale. Vital Signs: 00:24 BP 106 / 53; Pulse 63; Resp 20; Temp 97.0(O); Pulse Ox 94% on R/A; Weight 88.45 kg (R); [facility] Height 4 ft. 10 in. (147.32 cm) (R); Pain 10/10; 02:05 BP 146 / 69; Pulse 83; Resp 18 S; Pulse Ox 100% on R/A; Pain 2/10; af2 06:21 BP 130 / 73; Pulse 107; Resp 18; Temp 99.3(O); Pulse Ox 94% on R/A; dinorah 10:40 BP 121 / 57; Pulse 102; Resp 18; Pulse Ox 96% ; Pain 1/10; hs1 12:45 BP 119 / 59; Pulse 85; Resp 18; Temp 95.6; Pulse Ox 95% ; mb9 00:24 Body Mass Index 40.75 (88.45 kg, 147.32 cm) [facility] Vitals: 00:24 Log In Time: November 04, 2016 at 00:[address]. [facility] ED Course: 00:03 Patient visited by Lm Noriega Reg. pm4 00:03 Patient moved to Waiting pm4 00:22 Triage Initiated b 00:29 Justine Sawyer,GUS is Primary Nurse. jmb 00:29 Yulissa Parikh RN is Primary Nurse. jmb 00:29 Patient moved to [address] [facility] 00:31 Austin Grossman DO is Attending Physician. cs11 00:31 Patient visited by Austin Grossman DO. cs11 01:05 Patient visited by Carmella Lamb, Violin Teacher. jlm 01:05 Warm blanket given. jlm 01:27 [facility] Payment Agreement was scanned into [employer] and attached to record. hs2 01:29 Primary Nurse role handed off by Justine Sawyer,GUS dinorah 01:34 Lactic Acid (Zayas tube on ice) Sent. af2 01:34 Amylase Sent. af2 01:34 Lipase Sent. af2 01:34 MED Profile Sent. af2 01:34 CBC with Diff Sent. af2 01:36 The patient / caregiver is instructed regarding the plan of care and ED course. af2 01:36 Inserted saline lock: 22 gauge in left hand The patient tolerated the procedure well. af2 01:37 Patient visited by Yulissa Parikh RN. af2 02:06 Patient visited by Yulissa Parikh RN. af2 02:51 Patient visited by Yulissa Parikh RN. af2 02:52 Patient visited by Yulissa Parikh RN. af2 03:34 Patient visited by Yulissa Parikh RN. af2 03:35 Patient visited by Yulissa Parikh RN. af2 03:52 Patient visited by Yulissa Parikh RN. af2 03:52 Urine Culture Sent. af2 03:52 Urinalysis Sent. af2 04:25 Patient visited by Yulissa Parikh RN. af2 04:26 Patient moved to Admit Hold sls1 04:27 Patient moved to 14 sls1 04:54 CT ABD & PELVIS: IV and Oral Contrast Returned. EDMS 05:18 Satya Wall DO is Hospitalizing Provider. cs11 05:21 Patient moved to Admit Hold sls1 05:22 Admission Orders was scanned into [employer] and attached to record. tmm1 05:50 Patient visited by Yulissa Parikh RN. af2 06:21 Patient visited by Taty Haque PCA. dinorah 06:37 Discontinued IV lock intact, bleeding controlled, pressure dressing applied, No af2 redness/swelling at site. No procedures done that require assistance. 06:37 Inserted saline lock: 20 gauge in left hand The patient tolerated the procedure well. af2 06:38 Patient visited by Yulissa Parikh RN. af2 06:57 Mary Reid,RN is Primary Nurse. ck1 07:08 Patient visited by Yulissa Parikh RN. af2 07:22 Antoinette Sawyer RN is Primary Nurse. kcs 07:22 Patient moved to 18 kcs 07:55 Patient visited by Daxa Sanchez RN. mcp 07:55 IV is intact, is free of redness or swelling. with fluids infusing freely. mcp 09:03 Patient moved to Admit Hold js13 09:13 Primary Nurse role handed off by Yulissa Parikh RN kr3 09:13 Primary Nurse role handed off by Antoinette Sawyer RN kr3 09:36 T-Sheet-- Draft Copy was scanned into [employer] and attached to record. gb 10:53 Dinorah Keller, GUS is Primary Nurse. hs1 11:28 Patient visited by Dinorah Keller RN. hs1 11:44 Patient visited by Dinorah Keller RN. hs1 Administered Medications: 01:34 Drug: NS 0.9% 1000 ml [sodium chloride 0.9 % intravenous solution] Route: IV; Rate: af2 bolus; Site: left hand; 01:35 Drug: Dilaudid - HYDROmorphone 0.5 mg [hydromorphone 1 mg/mL injection syringe (0.5 af2 mL)] Route: IVP; Site: left hand; 06:17 Follow up: Response: Pain is decreased af2 04:17 Drug: Dilaudid - HYDROmorphone 0.5 mg [hydromorphone 1 mg/mL injection syringe (0.5 af2 mL)] Route: IVP; Site: right hand; 06:23 Follow up: Response: Pain is decreased af2 05:05 Drug: Piperacillin-Tazobactam 3.375 grams [piperacillin-tazobactam 3.375 gram af2 intravenous solution] Route: IVPB; Infused Over: 30 mins; Site: left hand; 06:57 Follow up: IV Status: Completed infusion af2 06:37 Drug: morphine 2 mg [morphine 2 mg/mL intravenous cartridge (1 mL)] Route: IVP; Site: af2 left hand; 06:57 Follow up: Response: Pain is decreased af2 07:08 Drug: metroNIDAZOLE 500 mg [metronidazole 500 mg/100 mL-sodium chloride(iso) af2 intravenous piggyback] Route: IV; Rate: 100 mL/hr; Infused Over: 60 mins; Site: left hand; 08:11 Drug: LR 1000 ml [lactated ringers intravenous solution] Route: IV; Rate: 100 mL/hr; mcp Site: left hand; Order Results: Lab Order: CBC with Diff; SPEC'M 11/04/16 01:37 Test: WHITE BLOOD COUNT; Value: 12.4; Range: 4.0-10.0; Abnormal: Above high normal; Units: K/mm3; Status: F Test: RED BLOOD COUNT; Value: 4.87; Range: 4.00-5.40; Units: M/mm3; Status: F Test: HEMOGLOBIN; Value: 14.1; Range: 12.0-16.0; Units: g/dl; Status: F Test: HEMATOCRIT; Value: 44.3; Range: 36.0-47.0; Units: %; Status: F Test: MEAN CORPUSCULAR VOLUME; Value: 91.0; Range: 80.0-96.0; Units: fl; Status: F Test: MEAN CORPUSCULAR HEMOGLOBIN; Value: 29.1; Range: 27.0-33.0; Units: pg; Status: F Test: MEAN CORPUSCULAR HGB CONC; Value: 31.9; Range: 32.0-36.5; Abnormal: Below low normal; Units: g/dl; Status: F Test: RED CELL DISTRIBUTION WIDTH; Value: 14.0; Range: 11.5-14.5; Units: %; Status: F Test: PLATELET COUNT, AUTOMATED; Value: 229; Range: 150-450; Units: k/mm3; Status: F Test: NEUTROPHILS %; Value: 88.6; Range: 36.0-66.0; Abnormal: Above high normal; Units: %; Status: F Test: LYMPH %; Value: 6.8; Range: 24.0-44.0; Abnormal: Below low normal; Units: %; Status: F Test: MONO %; Value: 2.4; Range: 0.0-5.0; Units: %; Status: F Test: EOS %; Value: 0.5; Range: 0.0-3.0; Units: %; Status: F Test: BASO %; Value: 0.2; Range: 0.0-1.0; Units: %; Status: F Test: LARGE UNSTAINED CELL %; Value: 1.5; Range: 0.0-4.0; Units: %; Status: F Test: NEUTROPHILS #; Value: 11.0; Range: 1.8-7.7; Abnormal: Above high normal; Units: K/mm3; Status: F Test: LYMPH #; Value: 0.9; Range: 1.5-4.5; Abnormal: Below low normal; Units: K/mm3; Status: F Test: MONO #; Value: 0.3; Range: 0.0-0.8; Units: K/mm3; Status: F Test: EOS #; Value: 0.1; Range: 0.0-0.50; Units: K/mm3; Status: F Test: BASO #; Value: 0.0; Range: 0.0-0.2; Units: K/mm3; Status: F Test: LARGE UNSTAINED CELL #; Value: 0.2; Range: 0.0-0.4; Units: K/mm3; Status: F Lab Order: MED Profile; [facility] 11/04/16 01:37 Test: GLUCOSE, FASTING; Value: 152; Range: 80-110; Abnormal: Above high normal; Units: MG/DL; Status: F Test: BLOOD UREA NITROGEN; Value: 12; Range: 7-18; Units: MG/DL; Status: F Test: CREATININE FOR GFR; Value: 0.92; Range: 0.55-1.02; Units: MG/DL; Status: F Test: GLOMERULAR FILTRATION RATE; Value: > 60.0; Range: >45; Status: F Test: SODIUM LEVEL; Value: 140; Range: 136-145; Units: MEQ/L; Status: F Test: POTASSIUM SERUM; Value: 3.7; Range: 3.5-5.1; Units: MEQ/L; Status: F Test: CHLORIDE LEVEL; Value: 105; Range: 98-107; Units: MEQ/L; Status: F Test: CARBON DIOXIDE LEVEL; Value: 24; Range: 21-32; Units: MEQ/L; Status: F Test: ANION GAP; Value: 11; Range: 8-16; Units: MEQ/L; Status: F Test: CALCIUM LEVEL; Value: 9.0; Range: 8.8-10.2; Units: MG/DL; Status: F Test Note: ; Units are mL/min/1.73 m2 Chronic Kidney Disease Staging per NKF: Stage I & II GFR >=60 Normal to Mildly Decreased Stage III GFR 30-59 Moderately Decreased Stage IV GFR 15-29 Severely Decreased Stage V GFR <15 Very Little GFR Left ESRD GFR <15 on [employer] Lab Order: Lipase; 11/04/16 01:37 Test: LIPASE; Value: 57; Range: 73-393; Abnormal: Below low normal; Units: U/L; Status: F Lab Order: Amylase; [facility] 11/04/16 01:37 Test: AMYLASE; Value: 16; Range: 25-115; Abnormal: Below low normal; Units: U/L; Status: F Lab Order: Urinalysis; [facility] 11/04/16 03:47 Test: APPEARANCE, URINE; Value: HAZY; Range: CLEAR; Status: F Test: COLOR, URINE; Value: YELLOW; Range: YELLOW; Status: F Test: PH,URINE; Value: 5.0; Range: 5.0-9.0; Units: UNITS; Status: F Test: SPECIFIC GRAVITY URINE AUTO; Value: 1.043; Range: 1.002-1.035; Status: F Test: PROTEIN, URINE AUTO; Value: NEGATIVE; Range: NEGATIVE; Units: mg/dL; Status: F Test: GLUCOSE, URINE (UA) AUTO; Value: NEGATIVE; Range: NEGATIVE; Units: mg/dL; Status: F Test: KETONE, URINE AUTO; Value: 2+; Range: NEGATIVE; Abnormal: Above high normal; Units: mg/dL; Status: F Test: UROBILINOGEN, URINE AUTO; Value: 4.0; Range: 0.0-2.0; Abnormal: Above high normal; Units: mg/dL; Status: F Test: BILIRUBIN, URINE AUTO; Value: NEGATIVE; Range: NEGATIVE; Status: F Test: NITRITE, URINE AUTO; Value: NEGATIVE; Range: NEGATIVE; Status: F Test: LEUKOCYTE ESTERASE, URINE AUTO; Value: TRACE; Range: NEGATIVE; Abnormal: Above high normal; Status: F Test: BLOOD, URINE BLOOD; Value: 2+; Range: NEGATIVE; Abnormal: Above high normal; Status: F Test: WBC, URINE AUTO; Value: 9; Range: 0-3; Abnormal: Above high normal; Units: /HPF; Status: F Test: RBC, URINE AUTO; Value: 13; Range: 0-3; Abnormal: Above high normal; Units: /HPF; Status: F Test: BACTERIA, URINE AUTO; Value: NEGATIVE; Range: NEGATIVE; Status: F Test: SQUAMOUS EPITHELIAL CELL UR AU; Value: 3; Range: 0-6; Units: /HPF; Status: F Test: MUCUS, URINE; Value: SMALL; Range: NEGATIVE; Status: F Test: HYALINE CAST, URINE AUTO; Value: 0; Range: 0-1; Units: /LPF; Status: F Test: CALCIUM OXALATE CRYSTALS; Value: SMALL; Range: NONE; Status: F Lab Order: Lactic Acid (Zayas tube on ice); SPEC'M 01/24/17 01:37 Test: LACTIC ACID LEVEL, LACTATE; Value: 1.9; Range: 0.4-2.0; Units: MMOL/L; Status: F Lab Order: PROTHROMBIN TIME PROFILE\E\INR; SPEC'M 11/04/16 09:17 Test: PROTHROMBIN TIME; Value: 16.4; Range: 12.3-14.5; Abnormal: Above high normal; Units: SECONDS; Status: F Test: INR; Value: 1.31; Status: F Test Note: ; THERAPUTIC HUMAN INR VALUES INDICATIONS NORMAL RANGES PROPHYLAXIS/TREATMENT OF: VENOUS THROMBOSIS 2.0-3.0 PULMONARY EMBOLISM 2.0-3.0 PREVENTION OF SYSTEMIC EMBOLISM FROM: TISSUE HEART VALVES 2.0-3.0 ACUTE MYOCARDIAL INFARCTION 2.0-3.0 VALVULAR HEART DISEASE 2.0-3.0 ATRIAL FIBRILLATION 2.0-3.0 MECHANICAL VALVES(HIGH RISK) 2.5-3.5 RECURRENT MYOCARDIAL INFARCTION 2.5-3.5 Radiology Order: CT ABD & PELVIS: IV and Oral Contrast Test: CT ABD & PELVIS: IV and Oral Contrast REASON FOR EXAMINATION: Abdomen Pain; ; CLINICAL HISTORY: Abdominal pain.; TECHNIQUE: Multiple axial, sagittal and coronal CT images were obtained through the abdomen and pelvi; s after administration of intravenous contrast material.; COMMENTS:; Comparison is made to the prior exam performed on 01/17/2016.; Thickened mid aspect of the sigmoid colon. Associated mid sigmoid perforation and a 3.5x4.1 cm perisi; gmoid abscess formation. Free air densities are limited to the perisigmoid fat. No other areas of pne; umoperitoneum identified. Diffuse inflammatory thickening of the abdominal and pelvic fat.; Diffusely dilated fluid filled small bowels.; Diffuse thickening of the small bowel loops.; Changes from prior gastric bypass surgery.; Mild diffuse thickening of the wall of the bladder.; Small amount of free fluid in the pelvis.; The liver is mildly enlarged with decreased attenuation without mass or defect. There is no intra or; extrahepatic biliary ductal dilatation. The spleen is normal. The gallbladder contains multiple galls; tones. The pancreas is of normal contour and attenuation characteristics. There is no evidence of adr; enal mass.; Both kidneys demonstrate prompt and equal nephrograms. The kidneys are normal in size, shape and conf; iguration. There is no evidence of renal or ureteral mass. No renal or ureteral calculi are identifie; d. There is no hydroureter or hydronephrosis.; No evidence for appendicitis.; There is no evidence of intrinsic or extrinsic bladder mass.; Images of the lung bases show no evidence of pleural or parenchymal mass. There are no pleural effusi; ons.; The bony structures are free of lytic or blastic lesions. Multilevel degenerative changes are seen in; volving the thoracolumbar spine. Scattered calcifications are seen involving the aorta and major bran; ches compatible with atherosclerosis.; IMPRESSION:; Mid sigmoid perforation. Probably perforated acute diverticulitis. Associated/underlying neoplastic p; athology is not excluded. Adjacent free air densities which are limited to the perisigmoid fat. Findi; ngs were not present on the prior exam.; No other areas of pneumoperitoneum.; Perisigmoid abscess formation. This was not present on prior exam.; Small amount of free fluid in the pelvis.; Diffuse inflammatory abdominal and pelvic fat stranding.; Distended gallbladder.; Multiple gallstones.; Hepatomegaly with fatty liver infiltration.; Thank you for your kind referral of this patient.; ; Outcome: 05:19 Decision to Hospitalize by Provider. cs11 13:11 Discharge Assessment: Patient awake, alert and oriented x 3. No cognitive and/or hs1 functional deficits noted. Patient verbalized understanding of disposition instructions. patient administered narcotics - no. The following High Risk Discharge criteria are identified: None. Admitted to Pediatrics accompanied by nurse, accompanied by tech, family with patient, via wheelchair, with chart. Condition: stable. CT Study completed. Property :Personal belongings accompany Pt. 13:23 Patient left the ED. hs1 Signatures: Dispatcher [employer] EDMS Keily Myers RN Daxa Chambers RN RN mcp Barnhardt, Gloria, Reg Reg Mary Sanders RN RN ck1 Ariadne Saenz RN RN kr3 Dinorah Keller RN RN hs1 Taty Haque, GLASS SANDER BELT GLASS SANDER BELT dinorah Danyell Farooq RN RN sls1 Kala Renner RN RN js13 Austin Grossman DO DO cs11 McLear, Melissa, GLASS SANDER BELT GLASS SANDER BELT tmm1 Merlin Crowell,RN RN Carmella Lockwood, Violin Teacher Unit sravanm Todd Zelaya,RN RN mb9 Yulissa ParikhRN RN af2 Lizette Diaz, Reg Reg hs2 Lm Noriega, Reg Reg pm4 Chart Complete MTDD
[2016-11-06 16:30] VITALS: BP 130/65
[2016-11-06 20:00] VITALS: BP 136/62
[2016-11-06] MEDS: APIXABAN 5 MG TAB (ELIQUIS) PO SCH (21:35)
[2016-11-06] MEDS: DULoxetine 30 MG CAP (CYMBALTA) PO SCH (21:36)
[2016-11-06] MEDS: guaiFENesin SYRUP 200 MG/10 ML UDC PO PRN (22:27)
[2016-11-07] VITALS: BP 120/58
[2016-11-07] MEDS: metroNIDAZOLE 500 MG in APPROPRIATE DILUENT 1 EA IV SCH ×4 (00:44→18:46)
[2016-11-07] MEDS: KCL 10MEQ IN D5/0.45NS 1000ML 1,000 ML IV SCH ×3 (00:45→20:59)
[2016-11-07 06:42] LABS: MEAN CORPUSCULAR HEMOGLOBIN 28.9 pg (27.0-33.0); MEAN CORPUSCULAR HGB CONC 32.1 g/dl (32.0-36.5); MEAN CORPUSCULAR VOLUME 89.9 fl (80.0-96.0); RED CELL DISTRIBUTION WIDTH 14.8 % (11.5-14.5); WHITE BLOOD COUNT 14.7 K/mm3 (4.0-10.0)
[2016-11-07 06:50] LABS: BLOOD UREA NITROGEN 3 MG/DL (7-18); CALCIUM LEVEL 8.1 MG/DL (8.8-10.2); CARBON DIOXIDE LEVEL 30 MEQ/L (21-32); CHLORIDE LEVEL 106 MEQ/L (98-107); GLOMERULAR FILTRATION RATE > 60.0 (>45); GLUCOSE, FASTING 122 MG/DL (80-110)
[2016-11-07 06:54] LABS: ANION GAP 7 MEQ/L (8-16); SODIUM LEVEL 143 MEQ/L (136-145)
[2016-11-07 07:19] LABS: POTASSIUM SERUM 2.9 MEQ/L (3.5-5.1)
[2016-11-07 08:00] VITALS: BP 122/67
[2016-11-07] MEDS: PANTOPRAZOLE 40MG TAB (PROTONIX) PO SCH (09:00)
[2016-11-07] MEDS: CYANOCOBALAMIN 500 MCG TAB PO SCH (09:00)
[2016-11-07] MEDS: SENOKOT S TAB PO SCH ×3 (09:00→21:00)
[2016-11-07] MEDS: POTASSIUM CHLORIDE 10 MEQ SR TABLET PO SCH ×2 (09:00→21:00)
[2016-11-07] MEDS: VITAMIN D 1,000 INTERNATIONAL UNITS TABLET PO SCH (09:01)
[2016-11-07] MEDS: CIPROFLOXACIN 400 MG in APPROPRIATE DILUENT 1 EA IV SCH (09:01)
[2016-11-07] MEDS: buPROPion **SR TABLET** (ZYBAN) 150MG PO SCH (09:01)
[2016-11-07] MEDS ORDERED: PIPERACILLIN/TAZOBACTAM SOD 3.375 GM in D5W MINI-BAG PLUS 50 ML IV SCH (13:00)
[2016-11-07] MEDS: PIPERACILLIN/TAZOBACTAM SOD 3.375 GM in D5W MINI-BAG PLUS 50 ML IV SCH ×2 (15:13→20:59)
[2016-11-07] MEDS: guaiFENesin SYRUP 200 MG/10 ML UDC PO PRN ×2 (15:53→22:04)
[2016-11-07 16:00] VITALS: BP 134/70
[2016-11-07 20:00] VITALS: BP 138/71
[2016-11-07] MEDS: APIXABAN 5 MG TAB (ELIQUIS) PO SCH (21:00)
[2016-11-07] MEDS: DULoxetine 30 MG CAP (CYMBALTA) PO SCH (21:00)
[2016-11-08] VITALS: BP 128/60
[2016-11-08] MEDS: metroNIDAZOLE 500 MG in APPROPRIATE DILUENT 1 EA IV SCH ×2 (01:09→06:32)
[2016-11-08] MEDS: PIPERACILLIN/TAZOBACTAM SOD 3.375 GM in D5W MINI-BAG PLUS 50 ML IV SCH ×2 (02:44→08:58)
[2016-11-08 06:20] LABS: MEAN CORPUSCULAR HEMOGLOBIN 28.7 pg (27.0-33.0); MEAN CORPUSCULAR VOLUME 89.8 fl (80.0-96.0); RED CELL DISTRIBUTION WIDTH 14.9 % (11.5-14.5); WHITE BLOOD COUNT 10.6 K/mm3 (4.0-10.0)
[2016-11-08 06:47] LABS: ANION GAP 9 MEQ/L (8-16); BLOOD UREA NITROGEN 2 MG/DL (7-18); CALCIUM LEVEL 7.7 MG/DL (8.8-10.2); CARBON DIOXIDE LEVEL 28 MEQ/L (21-32); CHLORIDE LEVEL 108 MEQ/L (98-107); CREATININE FOR GFR 0.55 MG/DL (0.55-1.02); GLOMERULAR FILTRATION RATE > 60.0 (>45); GLUCOSE, FASTING 123 MG/DL (80-110); POTASSIUM SERUM 3.2 MEQ/L (3.5-5.1); SODIUM LEVEL 145 MEQ/L (136-145)
[2016-11-08 08:00] VITALS: BP 131/69
[2016-11-08] MEDS: CYANOCOBALAMIN 500 MCG TAB PO SCH (08:58)
[2016-11-08] MEDS: PANTOPRAZOLE 40MG TAB (PROTONIX) PO SCH (08:59)
[2016-11-08] MEDS: POTASSIUM CHLORIDE 10 MEQ SR TABLET PO SCH (08:59)
[2016-11-08] MEDS: buPROPion **SR TABLET** (ZYBAN) 150MG PO SCH (08:59)
[2016-11-08] MEDS: SENOKOT S TAB PO SCH ×2 (08:59→09:00)
[2016-11-08] MEDS: VITAMIN D 1,000 INTERNATIONAL UNITS TABLET PO SCH (09:31)
[2016-11-08] MEDS ORDERED: FLAG500T PO ×2 (10:06→10:25)
[2016-11-08] MEDS ORDERED: CIPR500T89 PO ×2 (10:06→10:25)
--- NOTE | 2016-11-10 08:31 | DSES ---
DATE OF ADMISSION: 11/04/2016 DATE OF DISCHARGE: 11/08/2016 ADMISSION DIAGNOSIS: Perforated complicated diverticulitis. DISCHARGE DIAGNOSIS: Perforated complicated diverticulitis. HOSPITAL COURSE: Patient is a 61-year-old female who presented with lower abdominal pain to the emergency room (ER). She was found to have a ruptured diverticulitis with possible abscess on CT scan. White count on admission was 12.4. Therefore, I was called to evaluate her for surgical admission. She was admitted to the hospital with the plan for a possible IR drainage. I spoke with IR and however, due to the location of the abscess they did not have an easy access to be able to place a drain, so that they were unable to do so. She was kept on nothing by mouth for the first 24 hours, on intravenous (IV) fluids, antibiotics. Over the next morning, 11/05/2016, her white count had gone up to 15.6. However, she felt much better. Her abdominal pain was still present but much improved. On 11/05/2016, she felt much improved. Pain was still present but better. No nausea or vomiting. No bowel movements. However, she was having some slight fevers overnight. She was started on a clear liquid diet, ambulating, using incentive spirometer due to history of possible upper respiratory infection prior to entering the hospital, and no advancement in diet for that day. The next morning, 11/06/2016, she had no more fevers for 24 hours. Her white count had slightly come down to 15.3, abdominal pain continued to improve and she was having normal bowel movements that were nonbloody. The morning of 11/07/2016, white count down to 14.7. She had zero abdominal pain, still having normal bowel movements, ambulating without any difficulty, tolerating diet and again, no fevers. Plan was to watch her until her white count came down less than 12 prior to discharge. The next morning, today, 11/08/2016, her white count dropped from 14.7 down to 10.6. Physical examination still benign. No pain. Normal bowel movements. Tolerating diet. No nausea or vomiting. The only change from 11/07/2016 til today was that I took her off of the Cipro and switched it over to Zosyn. Continued the Flagyl. Otherwise, everything else stayed the same. Plan is to discharge home today with a 10-day course of Cipro and Flagyl by mouth. She will stay on a low-residue diet for the next 2 weeks and then followup with me in the office. As long as she is doing well, I will advance her to a high fiber diet and then I discussed the possibility of an elective colon resection with her, her and her daughter in the room today. I explained what this surgery is, how it is done and the reason for doing it as an elective procedure. I told her not to give me an answer today, to talk to over with her family, Google it and when she comes to see me office in 2 weeks I can answer all of her questions and help her decide which route she would like to take. There is no reason for repeating an outpatient colonoscopy because she just had one done about 2 months ago that did show diverticula.
== END 2016-11-08 11:35 | disposition home or self-care (01) | DRG 392 ==
LOC: M ED 00:02 → M ED INP 05:19 → M PED 13:36
PROVIDERS: ADMIT Surgery; ATTEND Surgery
DX: K57.80 Diverticulitis of intestine, part unspecified, with perforation and abscess without bleeding (principal); K21.9 Gastro-esophageal reflux disease without esophagitis; F41.9 Anxiety disorder, unspecified; Z86.711 Personal history of pulmonary embolism; Z91.040 Latex allergy status; Z79.899 Other long term (current) drug therapy

== ENCOUNTER 2016-11-23 20:28 | Inpatient (IN) | payer OTHER ==
[~2016-11-23] VITALS: Ht 147.3 cm; Wt 88.5 kg
[~2016-11-23 20:28] MED LIST changes: +ALBU17IN INH; +BUPR15TASR PO; +CIPR500T89 PO; +FLAG500T PO; +GUAI1TAB PO; +LEVA500T PO
[2016-11-23 22:00] LABS: BASO % 0.2 % (0.0-1.0); EOS # 0.1 K/mm3 (0.0-0.50); EOS % 0.9 % (0.0-3.0); LARGE UNSTAINED CELL # 0.2 K/mm3 (0.0-0.4); LARGE UNSTAINED CELL % 1.1 % (0.0-4.0); LYMPH # 1.5 K/mm3 (1.5-4.5); LYMPH % 9.2 % (24.0-44.0); MEAN CORPUSCULAR HEMOGLOBIN 28.7 pg (27.0-33.0); MEAN CORPUSCULAR HGB CONC 31.7 g/dl (32.0-36.5); MEAN CORPUSCULAR VOLUME 90.7 fl (80.0-96.0); MONO % 6.5 % (0.0-5.0); NEUTROPHILS # 12.2 K/mm3 (1.8-7.7); NEUTROPHILS % 82.1 % (36.0-66.0); PLATELET COUNT, AUTOMATED 361 k/mm3 (150-450); WHITE BLOOD COUNT 14.8 K/mm3 (4.0-10.0)
[2016-11-23] MEDS ORDERED: GASTROGRAFIN SOLUTION 30ML (Q9963) As Ordered ONE (22:00)
[2016-11-23 22:08] LABS: INR 1.21
[2016-11-23 22:29] LABS: ALKALINE PHOSPHATASE 58 U/L (45-117); ALT/SGPT 10 U/L (12-78); AMYLASE 24 U/L (25-115); ANION GAP 8 MEQ/L (8-16); AST/SGOT 12 U/L (15-37); BILIRUBIN,DIRECT 0.1 MG/DL (0.0-0.2); BILIRUBIN,TOTAL 0.4 MG/DL (0.2-1.0); BLOOD UREA NITROGEN 11 MG/DL (7-18); CALCIUM LEVEL 8.1 MG/DL (8.8-10.2); CARBON DIOXIDE LEVEL 29 MEQ/L (21-32); CHLORIDE LEVEL 105 MEQ/L (98-107); CREATININE FOR GFR 0.92 MG/DL (0.55-1.02); GLOMERULAR FILTRATION RATE > 60.0 (>45); GLUCOSE, FASTING 97 MG/DL (80-110); POTASSIUM SERUM 3.7 MEQ/L (3.5-5.1); SODIUM LEVEL 142 MEQ/L (136-145)
[2016-11-23 22:30] LABS: ALBUMIN/GLOBULIN RATIO 0.91 (1.00-1.93); TOTAL PROTEIN 6.3 GM/DL (6.4-8.2)
[2016-11-24] MEDS ORDERED: ACETAMINOPHEN 325 MG TAB As Ordered ONE (00:02)
--- NOTE | 2016-11-24 00:50 | REPUSA ---
CLINICAL HISTORY: Abdominal pain. TECHNIQUE: Multiple axial, sagittal and coronal CT images were obtained through the abdomen and pelvi s after administration of oral and intravenous contrast material. COMMENTS: Comparison is made to the prior exam performed on 11/04/2016. There is increase in the size of the perisigmoid abscess formation. It measures 5.4x4.3 cm on the cur rent exam. No change in mild hepatomegaly with fat infiltration. There is no intra or extrahepatic biliary ducta l dilatation. The spleen is normal. The gallbladder contains multiple gallstones. The pancreas is of normal contour and attenuation characteristics. There is no evidence of adrenal mass. Both kidneys demonstrate prompt and equal nephrograms. The kidneys are normal in size, shape and conf iguration. There is no evidence of renal or ureteral mass. No renal or ureteral calculi are identifie d. There is no hydroureter or hydronephrosis. No evidence for appendicitis. There is no bowel wall thickening. No evidence for small or large manuel l obstruction. There is no evidence of abdominal ascites or lymphadenopathy. There is no evidence of intrinsic or extrinsic bladder mass. There is no pelvic ascites or lymphadeno srinivasan. Unchanged cystitis. Images of the lung bases show no evidence of pleural or parenchymal mass. There is interval appearanc e of a small right pleural effusion. Unchanged small sliding-type hernia. The bony structures are free of lytic or blastic lesions. Multilevel degenerative changes are seen in volving the thoracolumbar spine. Scattered calcifications are seen involving the aorta and major bran ches compatible with atherosclerosis. IMPRESSION: Increase in the size of the perisigmoid abscess formation. Interval appearance of a small right pleural effusion. Unchanged cholelithiasis. Unchanged hepatomegaly with fat infiltration. Gastric bypass surgery. This is unchanged. Unchanged cystitis. Unchanged ileus. Thank you for your kind referral of this patient.
[2016-11-24] MEDS ORDERED: metroNIDAZOLE/NACL 500MG(5MG/ML)100 ML BAG (S0030) As Ordered ONE (01:47)
[2016-11-24] MEDS ORDERED: CIPROFLOXACIN/D5W 400 MG/200 ML BAG (J0744) As Ordered ONE (01:47)
[2016-11-24] MEDS: LR 1,000 ML IV SCH ×3 (01:55→17:28)
[2016-11-24] MEDS ORDERED: [UNRECOGNIZED DRUG - CODE] PO (01:57)
[2016-11-24] MEDS ORDERED: PERCOCET 5MG/325MG TAB PO PRN (02:00)
[2016-11-24] MEDS ORDERED: ACETAMINOPHEN TAB 650MG DOSE (2X325MG) PO PRN (02:00)
[2016-11-24] MEDS ORDERED: MORPHINE 4 MG/ML 1ML SYRINGE IV PRN (02:00)
[2016-11-24] MEDS ORDERED: ONDANSETRON 4MG/2ML VIAL (J2405) IV PRN (02:00)
--- NOTE | 2016-11-24 03:15 | EDDOCDS ---
Nurse's Notes [facility] Name: Melissa Peck Age: 61 yrs Sex: Female : 1955 Arrival Date: 11/23/2016 Time: 20:28 Bed 9 Private MD: Todd Zapata WAT Diagnosis: Diverticulitis of intestine, part unspecified, with perforation and abscess-worsened Presentation: 11/23 20:32 Presenting complaint: Patient states: fever on and off today, abdominal pressure feels rs3 like constipated. taken senna this evening without any results. Was admitted for diverticulitis 3 weeks ago. Adult Sepsis Screening: The patient does not have new or worsening altered mentation. Patient's respiratory rate is less than 22. Systolic blood pressure is greater than 100. Patient has a qSOFA score of 0- Negative Sepsis Screen. Suicide/Homicide risk assessment- the patient denies having any suicidal and/or homicidal ideations and does not present with any other emotional, behavioral or mental health complaints. Status: Patient is not a hosted services analyst or dependent. Transition of care: patient was not received from another setting of care. 20:32 Acuity: CRYS Level 3 rs3 20:32 Method Of Arrival: Walkin/Carried/Asstd rs3 Triage Assessment: 20:36 General: Appears in no apparent distress. Pain: Location: abdomen. HIV screening NA for rs3 this visit Offered previously. Historical: - Allergies: Latex (Hives); - Home Meds: 1. Cymbalta 60 mg Oral cpDR 1 cap once daily 2. Wellbutrin 100 mg Oral tab 2 times per day 3. Eliquis 5 mg oral tab 1 tab 2 times per day 4. Cough Syrup oral liqd as needed 5. Levaquin 500 mg Oral tab 1 tab once daily 6. Flagyl 500 mg Oral tab 3 times per day - PMHx: Anxiety; GERD; PE; Pneumonia; Diverticulitis; - PSHx: ; Right knee arthroscopic surgery; Gastric Bypass; - Social history: Smoking status: Patient states was never smoker of tobacco. No barriers to communication noted, The patient speaks fluent Dominican. - Family history: No immediate family members are acutely ill. - : The pt / caregiver states he / she is on anticoagulants: Eliquis Home medication list is obtained from the patient. - Exposure Risk Screening:: None identified. Screenin:56 Screening information is obtained from the patient. Fall risk: No risks identified. mv5 Assistance ADL's: requires no assistance with activities of daily living. Abuse/DV Screen: The patient / caregiver reports he/she is: not in a situation that causes fear, pain or injury. Nutritional screening: No deficits noted. Advance Directives: There is no active DNR order. home support is adequate. Assessment: 21:56 General: Appears in no apparent distress, well nourished, well groomed, Behavior is mv5 cooperative, pleasant, Family at bedside.. Pain: Denies pain. Neurological: Level of Consciousness is awake, alert, Oriented to person, place, time. Cardiovascular: Capillary refill < 3 seconds Heart tones S1 S2 present Pulses are all present. Rhythm is regular. Respiratory: Airway is patent Respiratory effort is even, unlabored, Respiratory pattern is regular, symmetrical, Breath sounds are clear bilaterally. GI: Abdomen is flat, Bowel sounds present X 4 quads. Abd is soft and non tender X 4 quads. : No deficits noted. Derm: Skin is pink, warm & dry. 22:14 Cardiovascular: Rhythm is sinus tachycardia No ectopy. mv5 22:28 General: Appears in no apparent distress, comfortable, Behavior is cooperative, mv5 pleasant. Pain: Denies pain. Respiratory: Airway is patent Respiratory effort is even, unlabored, Respiratory pattern is regular, symmetrical. Derm: Skin is pink, warm & dry. 22:50 General: Pt tolerating PO contrast well at this time. Encouraged to provide urine mv5 sample when able.. 23:27 General: Appears in no apparent distress, Pt OOB to restroom.. Pain: Denies pain. mv5 Respiratory: Airway is patent Respiratory effort is even, unlabored, Respiratory pattern is regular, symmetrical. Derm: Skin is pink, warm & dry. 11/24 00:05 General: Appears in no apparent distress, comfortable, Temp elevated upon VS re-check. mv5 MD aware, orders received.. Pain: Denies pain. Cardiovascular: Rhythm is sinus tachycardia No ectopy. Respiratory: Airway is patent Respiratory effort is even, unlabored, Respiratory pattern is regular, symmetrical. Derm: Skin is pink, warm & dry. 00:48 General: Appears in no apparent distress. Respiratory: Airway is patent Respiratory mv5 effort is even, unlabored, Respiratory pattern is regular, symmetrical. Derm: Skin is pink, warm & dry. 01:54 General: Appears in no apparent distress, comfortable. Pain: Denies pain. Respiratory: mv5 Airway is patent Respiratory effort is even, unlabored, Respiratory pattern is regular, symmetrical. Derm: Skin is pink, warm & dry. 03:07 General: Appears in no apparent distress, comfortable. Pain: Denies pain. Respiratory: mv5 Airway is patent Respiratory effort is even, unlabored, Respiratory pattern is regular, symmetrical. Derm: Skin is pink, warm & dry. Vital Signs: 11/23 20:31 BP 142 / 72; Pulse 108; Resp 18; Temp 100.8(O); Pulse Ox 96% on R/A; Weight 88.45 kg ct3 (R); Height 4 ft. 10 in. (147.32 cm) (R); Pain 11/21; 22:08 BP 131 / 60 (auto/); mv5 22:09 Pulse 100 MON; Pulse Ox 96% ; mv5 22:37 BP 135 / 71 (auto/); mv5 22:37 Pulse 106 MON; Pulse Ox 94% ; mv5 23:07 BP 128 / 58 (auto/); mv5 23:07 Pulse 102 MON; Pulse Ox 94% ; mv5 23:37 BP 129 / 68 (auto/); mv5 23:38 Pulse 104 MON; Resp 18; Temp 102.7(TE); Pulse Ox 92% ; mv5 / 00:07 BP 124 / 60 (auto/); mv5 00:07 Pulse 104 MON; Pulse Ox 92% ; mv5 00:21 BP 137 / 65 (auto/); mv5 00:24 Pulse 100 MON; Pulse Ox 93% ; mv5 00:51 BP 129 / 60; Pulse 102 MON; Resp 18; Temp 99.0(TE); Pulse Ox 92% ; mv5 01:21 BP 131 / 60 (auto/); mv5 01:21 Pulse 98 MON; Pulse Ox 91% ; mv5 01:51 BP 130 / 62 (auto/); mv5 01:51 Pulse 96 MON; Pulse Ox 92% ; mv5 02:21 BP 124 / 59 (auto/); mv5 02:22 BP 124 / 59; Pulse 88 MON; Resp 16; Temp 99.7(TE); Pulse Ox 94% on R/A; mv5 11/23 20:31 Body Mass Index 40.75 (88.45 kg, 147.32 cm) ct3 Vitals: 11/23 20:31 Log In Time: November 23, 2016 at 20:28. ct3 ED Course: 20:29 Patient visited by Phyllis Rodas PCA. ct3 20:29 Patient moved to Waiting ct3 20:30 Todd Zapata is Private Physician. ct3 20:32 Patient moved to Pre RCE ct3 20:34 Triage Initiated rs3 20:43 Patient moved to Triage 3 ttb 21:13 Dinorah Keller, GUS is Primary Nurse. slm 21:13 Lynn Chairez,GUS is Primary Nurse. slm 21:13 Patient moved to 9 slm 21:16 Rasheed Langley DO is Attending Physician. mm11 21:16 Patient visited by Rasheed Langley DO. mm11 21:40 Patient visited by Rasheed Langley DO. mm11 21:56 The patient / caregiver is instructed regarding the plan of care and ED course. mv5 21:56 Inserted saline lock: 20 gauge in left antecubital area and blood collected. The mv5 patient tolerated the procedure well. 21:58 BLOOD CULTURES Sent. mv5 21:58 -Blood Culture Sent. mv5 21:58 Amylase Sent. mv5 21:58 Basic Metabolic Profile Sent. mv5 21:58 CBC with Diff Sent. mv5 21:58 Cardiac Injury Profile Sent. mv5 21:58 Lipase Sent. mv5 21:58 Liver Profile Sent. mv5 21:58 Partial Thromboplastin Time Sent. mv5 21:58 Prothrombin Time Profile\E\INR Sent. mv5 21:58 Troponin Sent. mv5 22:17 Patient visited by Lynn Chairez RN. mv5 22:34 [facility] Payment Agreement was scanned into [email or web address] and attached to record. jp5 22:47 Primary Nurse role handed off by Dinorah Keller, GUS ar3 22:50 Patient visited by Lynn Chairez,GUS. mv5 23:27 Patient visited by Lynn Chairez,GUS. mv5 23:58 Patient visited by Lynn Chairez RN. mv5 11/24 00:47 Patient visited by Rasheed Langley DO. mm11 00:53 Patient visited by Adonis Maria PCA. mdr 00:53 Assisted to bathroom. mdr 01:00 CT ABD & PELVIS: IV and Oral Contrast Returned. EDMS 01:23 Patient visited by Rasheed Langley DO. mm11 01:40 Mendoza Menchaca MD is Hospitalizing Provider. mm11 01:54 Patient visited by Lynn Chairez RN. mv5 03:07 No procedures done that require assistance. mv5 Administered Medications: 11/23 22:12 Drug: Diatrizoate Meglumine & Sodium 10 ml [diatrizoate meglumine and diat.sodium 66 mv5 %-10 % oral solution (10 mL)] Route: PO; 11/24 00:00 Follow up: Response: No Adverse Reaction mv5 11/23 22:45 Drug: Diatrizoate Meglumine & Sodium 10 ml [diatrizoate meglumine and diat.sodium 66 mv5 %-10 % oral solution (10 mL)] Route: PO; 11/24 00:00 Follow up: Response: No Adverse Reaction mv5 00:04 Drug: Acetaminophen 650 mg [acetaminophen 325 mg tablet (2 tabs)] Route: PO; mv5 03:05 Follow up: Response: No Adverse Reaction mv5 01:53 Drug: metroNIDAZOLE 500 mg [metronidazole 500 mg/100 mL-sodium chloride(iso) mv5 intravenous piggyback] Route: IVPB; Rate: 100 mL/hr; Infused Over: 60 mins; Site: left antecubital; 03:05 Follow up: IV Status: Completed infusion mv5 03:05 Drug: Ciprofloxacin 400 mg [ciprofloxacin 400 mg/200 mL in 5 % dextrose intravenous mv5 piggyback] Route: IVPB; Rate: 200 mL/hr; Infused Over: 60 mins; Site: left antecubital; Order Results: Lab Order: Amylase; SPEC'M 11/23/16 21:52 Test: AMYLASE; Value: 24; Range: 25-115; Abnormal: Below low normal; Units: U/L; Status: F Lab Order: Basic Metabolic Profile; SPEC'M 11/23/16 21:52 Test: GLUCOSE, FASTING; Value: 97; Range: 80-110; Units: MG/DL; Status: F Test: BLOOD UREA NITROGEN; Value: 11; Range: 7-18; Units: MG/DL; Status: F Test: CREATININE FOR GFR; Value: 0.92; Range: 0.55-1.02; Units: MG/DL; Status: F Test: GLOMERULAR FILTRATION RATE; Value: > 60.0; Range: >45; Status: F Test: SODIUM LEVEL; Value: 142; Range: 136-145; Units: MEQ/L; Status: F Test: POTASSIUM SERUM; Value: 3.7; Range: 3.5-5.1; Units: MEQ/L; Status: F Test: CHLORIDE LEVEL; Value: 105; Range: 98-107; Units: MEQ/L; Status: F Test: CARBON DIOXIDE LEVEL; Value: 29; Range: 21-32; Units: MEQ/L; Status: F Test: ANION GAP; Value: 8; Range: 8-16; Units: MEQ/L; Status: F Test: CALCIUM LEVEL; Value: 8.1; Range: 8.8-10.2; Abnormal: Below low normal; Units: MG/DL; Status: F Test Note: ; Units are mL/min/1.73 m2 Chronic Kidney Disease Staging per NKF: Stage I & II GFR >=60 Normal to Mildly Decreased Stage III GFR 30-59 Moderately Decreased Stage IV GFR 15-29 Severely Decreased Stage V GFR <15 Very Little GFR Left ESRD GFR <15 on PRINCIPAL GIFTS OFFICER Lab Order: CBC with Diff; SPEC'M 11/23/16 21:52 Test: WHITE BLOOD COUNT; Value: 14.8; Range: 4.0-10.0; Abnormal: Above high normal; Units: K/mm3; Status: F Test: RED BLOOD COUNT; Value: 3.97; Range: 4.00-5.40; Abnormal: Below low normal; Units: M/mm3; Status: F Test: HEMOGLOBIN; Value: 11.4; Range: 12.0-16.0; Abnormal: Below low normal; Units: g/dl; Status: F Test: HEMATOCRIT; Value: 36.0; Range: 36.0-47.0; Units: %; Status: F Test: MEAN CORPUSCULAR VOLUME; Value: 90.7; Range: 80.0-96.0; Units: fl; Status: F Test: MEAN CORPUSCULAR HEMOGLOBIN; Value: 28.7; Range: 27.0-33.0; Units: pg; Status: F Test: MEAN CORPUSCULAR HGB CONC; Value: 31.7; Range: 32.0-36.5; Abnormal: Below low normal; Units: g/dl; Status: F Test: RED CELL DISTRIBUTION WIDTH; Value: 15.0; Range: 11.5-14.5; Abnormal: Above high normal; Units: %; Status: F Test: PLATELET COUNT, AUTOMATED; Value: 361; Range: 150-450; Units: k/mm3; Status: F Test: NEUTROPHILS %; Value: 82.1; Range: 36.0-66.0; Abnormal: Above high normal; Units: %; Status: F Test: LYMPH %; Value: 9.2; Range: 24.0-44.0; Abnormal: Below low normal; Units: %; Status: F Test: MONO %; Value: 6.5; Range: 0.0-5.0; Abnormal: Above high normal; Units: %; Status: F Test: EOS %; Value: 0.9; Range: 0.0-3.0; Units: %; Status: F Test: BASO %; Value: 0.2; Range: 0.0-1.0; Units: %; Status: F Test: LARGE UNSTAINED CELL %; Value: 1.1; Range: 0.0-4.0; Units: %; Status: F Test: NEUTROPHILS #; Value: 12.2; Range: 1.8-7.7; Abnormal: Above high normal; Units: K/mm3; Status: F Test: LYMPH #; Value: 1.5; Range: 1.5-4.5; Units: K/mm3; Status: F Test: MONO #; Value: 1.0; Range: 0.0-0.8; Abnormal: Above high normal; Units: K/mm3; Status: F Test: EOS #; Value: 0.1; Range: 0.0-0.50; Units: K/mm3; Status: F Test: BASO #; Value: 0.0; Range: 0.0-0.2; Units: K/mm3; Status: F Test: LARGE UNSTAINED CELL #; Value: 0.2; Range: 0.0-0.4; Units: K/mm3; Status: F Lab Order: Cardiac Injury Profile; [facility]11/23/16 21:52 Test: CPK CREATINE PHOSPHOKINASE; Value: 38; Range: 26-192; Units: U/L; Status: F Test: CK-MB VALUE MASS; Value: 1.6; Range: 0.0-3.6; Units: NG/ML; Status: F Test: MB/CK RELATIVE INDEX; Value: 4.21; Range: < OR =4; Abnormal: Above high normal; Status: F Test Note: ; DIAGNOSIS CRITERIA MMB ng/ml Relative Index (RI) NON-AMI < or = 5 N/A ALVAREZ ZONE > 5 < or = 4 AMI > 5 > 4 Lab Order: Lipase; 11/23/16 21:52 Test: LIPASE; Value: 78; Range: 73-393; Units: U/L; Status: F Lab Order: Liver Profile; [facility]11/23/16 21:52 Test: AST/SGOT; Value: 12; Range: 15-37; Abnormal: Below low normal; Units: U/L; Status: F Test: ALT/SGPT; Value: 10; Range: 12-78; Abnormal: Below low normal; Units: U/L; Status: F Test: ALKALINE PHOSPHATASE; Value: 58; Range: 45-117; Units: U/L; Status: F Test: BILIRUBIN,TOTAL; Value: 0.4; Range: 0.2-1.0; Units: MG/DL; Status: F Test: BILIRUBIN,DIRECT; Value: 0.1; Range: 0.0-0.2; Units: MG/DL; Status: F Test: TOTAL PROTEIN; Value: 6.3; Range: 6.4-8.2; Abnormal: Below low normal; Units: GM/DL; Status: F Test: ALBUMIN; Value: 3.0; Range: 3.2-5.2; Abnormal: Below low normal; Units: GM/DL; Status: F Test: ALBUMIN/GLOBULIN RATIO; Value: 0.91; Range: 1.00-1.93; Abnormal: Below low normal; Status: F Lab Order: Partial Thromboplastin Time; [facility]11/23/16 21:52 Test: PARTIAL THROMBOPLASTIN TIME; Value: 30.5; Range: 26.6-37.1; Units: SECONDS; Status: F Lab Order: Prothrombin Time Profile\E\INR; [facility] 11/23/16 21:52 Test: PROTHROMBIN TIME; Value: 15.4; Range: 12.3-14.5; Abnormal: Above high normal; Units: SECONDS; Status: F Test: INR; Value: 1.21; Status: F Test Note: ; THERAPUTIC HUMAN INR VALUES INDICATIONS NORMAL RANGES PROPHYLAXIS/TREATMENT OF: VENOUS THROMBOSIS 2.0-3.0 PULMONARY EMBOLISM 2.0-3.0 PREVENTION OF SYSTEMIC EMBOLISM FROM: TISSUE HEART VALVES 2.0-3.0 ACUTE MYOCARDIAL INFARCTION 2.0-3.0 VALVULAR HEART DISEASE 2.0-3.0 ATRIAL FIBRILLATION 2.0-3.0 MECHANICAL VALVES(HIGH RISK) 2.5-3.5 RECURRENT MYOCARDIAL INFARCTION 2.5-3.5 Lab Order: Troponin; 11/23/16 21:52 Test: TROPONIN I; Value: < 0.02; Range: < 0.10; Units: NG/ML; Status: F Test Note: ; Troponin I Reference Interval for [employer] LOCI: 99th Percentile= 0.00-0.045 ng/ml Risk Stratification: <= 0.10 ng/ml Decreased Risk for Adverse Clinical Events. 0.10-1.50 ng/ml Increased Risk for Adverse Clinical Events. Evaluation of additional criterion and/or repeat testing in 2-6 hours is suggested to rule out myocardial damage. >= 1.50 ng/ml Indicative of Myocardial Injury. Lab Order: UA; SPE[facility]11/23/16 23:36 Test: APPEARANCE, URINE; Value: CLEAR; Range: CLEAR; Status: F Test: COLOR, URINE; Value: YELLOW; Range: YELLOW; Status: F Test: PH,URINE; Value: 7.0; Range: 5.0-9.0; Units: UNITS; Status: F Test: SPECIFIC GRAVITY URINE AUTO; Value: 1.013; Range: 1.002-1.035; Status: F Test: PROTEIN, URINE AUTO; Value: NEGATIVE; Range: NEGATIVE; Units: mg/dL; Status: F Test: GLUCOSE, URINE (UA) AUTO; Value: NEGATIVE; Range: NEGATIVE; Units: mg/dL; Status: F Test: KETONE, URINE AUTO; Value: TRACE; Range: NEGATIVE; Abnormal: Above high normal; Units: mg/dL; Status: F Test: UROBILINOGEN, URINE AUTO; Value: 0.2; Range: 0.0-2.0; Units: mg/dL; Status: F Test: BILIRUBIN, URINE AUTO; Value: NEGATIVE; Range: NEGATIVE; Status: F Test: NITRITE, URINE AUTO; Value: NEGATIVE; Range: NEGATIVE; Status: F Test: LEUKOCYTE ESTERASE, URINE AUTO; Value: NEGATIVE; Range: NEGATIVE; Status: F Test: BLOOD, URINE BLOOD; Value: 2+; Range: NEGATIVE; Abnormal: Above high normal; Status: F Test: WBC, URINE AUTO; Value: 1; Range: 0-3; Units: /HPF; Status: F Test: RBC, URINE AUTO; Value: 9; Range: 0-3; Abnormal: Above high normal; Units: /HPF; Status: F Test: BACTERIA, URINE AUTO; Value: 1+; Range: NEGATIVE; Abnormal: Above high normal; Status: F Test: SQUAMOUS EPITHELIAL CELL UR AU; Value: 2; Range: 0-6; Units: /HPF; Status: F Test: HYALINE CAST, URINE AUTO; Value: 0; Range: 0-1; Units: /LPF; Status: F Radiology Order: CT ABD & PELVIS: IV and Oral Contrast Test: CT ABD & PELVIS: IV and Oral Contrast REASON FOR EXAMINATION: abd pain, hx of perf; ; CLINICAL HISTORY: Abdominal pain.; TECHNIQUE: Multiple axial, sagittal and coronal CT images were obtained through the abdomen and pelvi; s after administration of oral and intravenous contrast material.; COMMENTS:; Comparison is made to the prior exam performed on 11/04/2016.; There is increase in the size of the perisigmoid abscess formation. It measures 5.4x4.3 cm on the cur; rent exam.; No change in mild hepatomegaly with fat infiltration. There is no intra or extrahepatic biliary ducta; l dilatation. The spleen is normal. The gallbladder contains multiple gallstones. The pancreas is of; normal contour and attenuation characteristics. There is no evidence of adrenal mass.; Both kidneys demonstrate prompt and equal nephrograms. The kidneys are normal in size, shape and conf; iguration. There is no evidence of renal or ureteral mass. No renal or ureteral calculi are identifie; d. There is no hydroureter or hydronephrosis.; No evidence for appendicitis. There is no bowel wall thickening. No evidence for small or large manuel; l obstruction. There is no evidence of abdominal ascites or lymphadenopathy.; There is no evidence of intrinsic or extrinsic bladder mass. There is no pelvic ascites or lymphadeno; srinivasan. Unchanged cystitis.; Images of the lung bases show no evidence of pleural or parenchymal mass. There is interval appearanc; e of a small right pleural effusion. Unchanged small sliding-type hernia.; The bony structures are free of lytic or blastic lesions. Multilevel degenerative changes are seen in; volving the thoracolumbar spine. Scattered calcifications are seen involving the aorta and major bran; ches compatible with atherosclerosis.; IMPRESSION:; Increase in the size of the perisigmoid abscess formation.; Interval appearance of a small right pleural effusion.; Unchanged cholelithiasis.; Unchanged hepatomegaly with fat infiltration.; Gastric bypass surgery. This is unchanged.; Unchanged cystitis.; Unchanged ileus.; Thank you for your kind referral of this patient.; ; Outcome: 01:40 Decision to Hospitalize by Provider. mm11 03:07 Discharge Assessment: Patient awake, alert and oriented x 3. No cognitive and/or mv5 functional deficits noted. Patient verbalized understanding of disposition instructions. patient administered narcotics - no. The following High Risk Discharge criteria are identified: None. Admitted to Med/Surg accompanied by tech, with chart. Condition: stable. CT Study completed. Property :Personal belongings accompany Pt. 03:14 Patient left the ED. mv5 Signatures: Dispatcher [employer] EDMS Rasheed Langley DO DO mm11 Sarita NoelRN RN rs3 Lissa Jones, COMPETITIVE ATHLETE COMPETITIVE ATHLETE ar3 Phyllis Rodas, COMPETITIVE ATHLETE COMPETITIVE ATHLETE ct3 Paula Haynes RN RN Daniella Leon LPN LPN slBernardo Crowder jp5 Adonis Maria, COMPETITIVE ATHLETE COMPETITIVE ATHLETE mdr Lynn Chairez,RN RN mv5 Corrections: (The following items were deleted from the chart) 11/23 23:58 23:38 Pulse 104bpm; Monitor; Pulse Ox 92%; mv5 mv5 MTDD
--- NOTE | 2016-11-24 03:15 | EDDOCDS ---
Physician Documentation [facility] Name: Melissa Peck Age: 61 yrs Sex: Female : 1955 Arrival Date: 11/23/2016 Time: 20:28 Bed 9 Private MD: Todd Zapata WAT Disposition: 11/24/16 01:40 Hospitalization ordered by Mendoza Menchaca for Inpatient Admission. Preliminary diagnosis is Diverticulitis of intestine, part unspecified, with perforation and abscess - worsened. - Bed requested for 5 [place]. - Status is Inpatient Admission. mv5 - Condition is Stable. - Problem is an acute exacerbation. - Symptoms have improved. Historical: - Allergies: Latex (Hives); - Home Meds: 1. Cymbalta 60 mg Oral cpDR 1 cap once daily 2. Wellbutrin 100 mg Oral tab 2 times per day 3. Eliquis 5 mg oral tab 1 tab 2 times per day 4. Cough Syrup oral liqd as needed 5. Levaquin 500 mg Oral tab 1 tab once daily 6. Flagyl 500 mg Oral tab 3 times per day - PMHx: Anxiety; GERD; PE; Pneumonia; Diverticulitis; - PSHx: ; Right knee arthroscopic surgery; Gastric Bypass; - Social history: Smoking status: Patient states was never smoker of tobacco. No barriers to communication noted, The patient speaks fluent Slovak. - Family history: No immediate family members are acutely ill. - : The pt / caregiver states he / she is on anticoagulants: Eliquis Home medication list is obtained from the patient. - Exposure Risk Screening:: None identified. Vital Signs: 11/23 20:31 BP 142 / 72; Pulse 108; Resp 18; Temp 100.8(O); Pulse Ox 96% on R/A; Weight 88.45 kg / ct3 195 lbs (R); Height 4 ft. 10 in. (147.32 cm) (R); Pain 2/10; 22:08 BP 131 / 60 (auto/); mv5 22:09 Pulse 100 MON; Pulse Ox 96% ; mv5 22:37 BP 135 / 71 (auto/); mv5 22:37 Pulse 106 MON; Pulse Ox 94% ; mv5 23:07 BP 128 / 58 (auto/); mv5 23:07 Pulse 102 MON; Pulse Ox 94% ; mv5 23:37 BP 129 / 68 (auto/); mv5 23:38 Pulse 104 MON; Resp 18; Temp 102.7(TE); Pulse Ox 92% ; mv5 02 00:07 BP 124 / 60 (auto/); mv5 00:07 Pulse 104 MON; Pulse Ox 92% ; mv5 00:21 BP 137 / 65 (auto/); mv5 00:24 Pulse 100 MON; Pulse Ox 93% ; mv5 00:51 BP 129 / 60; Pulse 102 MON; Resp 18; Temp 99.0(TE); Pulse Ox 92% ; mv5 01:21 BP 131 / 60 (auto/); mv5 01:21 Pulse 98 MON; Pulse Ox 91% ; mv5 01:51 BP 130 / 62 (auto/); mv5 01:51 Pulse 96 MON; Pulse Ox 92% ; mv5 02:21 BP 124 / 59 (auto/); mv5 02:22 BP 124 / 59; Pulse 88 MON; Resp 16; Temp 99.7(TE); Pulse Ox 94% on R/A; mv5 11/23 20:31 Body Mass Index 40.75 (88.45 kg, 147.32 cm) ct3 MDM: 11/23 21:37 -Blood Culture (Adults Only), peripheral from different site, or from device/port/PICC mm11 etc. if present ordered. 21:37 IV Saline Lock ordered. mm11 21:37 Undress patient appropriately for examination ordered. mm11 21:37 Training Manager/Pulse Ox/q 30 min VS ordered. mm11 21:38 -Blood Culture (Adults Only), peripheral from different site, or from device/port/PICC dinorah etc. if present complete. 21:38 Amylase Ordered. EDMS 21:38 Basic Metabolic Profile Ordered. EDMS 21:38 CBC with Diff Ordered. EDMS 21:38 Cardiac Injury Profile Ordered. EDMS 21:38 Lipase Ordered. EDMS 21:39 Liver Profile Ordered. EDMS 21:39 Partial Thromboplastin Time Ordered. EDMS 21:39 Prothrombin Time Profile\E\INR Ordered. EDMS 21:39 Troponin Ordered. EDMS 21:39 -Blood Culture Ordered. EDMS 21:39 CT ABD & PELVIS: IV and Oral Contrast Ordered. EDMS 21:39 NOTHING BY MOUTH+DIET ordered. EDMS 21:43 BLOOD CULTURES Ordered. EDMS 22:12 Diatrizoate Meglumine & Sodium Liquid 10 ml PO once; mix in 290cc of water ordered. mv5 22:15 UA Ordered. EDMS 22:15 Urine Culture Ordered. EDMS 22:34 [facility] Payment Agreement was scanned into [employer] and attached to record. jp5 22:34 Financial registration complete. jp5 22:53 Diatrizoate Meglumine & Sodium Liquid 10 ml PO once; mix in 290cc of water ordered. mv5 23:59 Acetaminophen Tablet 650 mg PO once ordered. mm11 23:59 Amylase Reviewed. mm11 23:59 Basic Metabolic Profile Reviewed. mm11 23:59 CBC with Diff Reviewed. mm11 23:59 Cardiac Injury Profile Reviewed. mm11 23:59 Liver Profile Reviewed. mm11 23:59 Prothrombin Time Profile\E\INR Reviewed. mm11 23:59 Lipase Reviewed. mm11 23:59 Partial Thromboplastin Time Reviewed. mm11 23:59 Troponin Reviewed. mm11 11/24 01:23 UA Reviewed. mm11 01:23 CT ABD & PELVIS: IV and Oral Contrast Reviewed. mm11 01:24 BED REQUEST+ADM ordered. EDMS 01:28 Ciprofloxacin 400 mg IVPB at 200 mL/hr once over 60 mins ordered. mm11 01:28 metroNIDAZOLE 500 mg IVPB at 100 mL/hr once over 60 mins ordered. mm11 02:07 Admission / Observation Status ordered. EDMS 02:07 NPO DIET ordered. EDMS 02:09 ABCESS DRAIN ([facility]EDLE PLACE) US Ordered. EDMS Administered Medications: 11/23 22:12 Drug: Diatrizoate Meglumine & Sodium 10 ml [diatrizoate meglumine and diat.sodium 66 mv5 %-10 % oral solution (10 mL)] Route: PO; 11/24 00:00 Follow up: Response: No Adverse Reaction mv5 11/23 22:45 Drug: Diatrizoate Meglumine & Sodium 10 ml [diatrizoate meglumine and diat.sodium 66 mv5 %-10 % oral solution (10 mL)] Route: PO; 11/24 00:00 Follow up: Response: No Adverse Reaction mv5 00:04 Drug: Acetaminophen 650 mg [acetaminophen 325 mg tablet (2 tabs)] Route: PO; mv5 03:05 Follow up: Response: No Adverse Reaction mv5 01:53 Drug: metroNIDAZOLE 500 mg [metronidazole 500 mg/100 mL-sodium chloride(iso) mv5 intravenous piggyback] Route: IVPB; Rate: 100 mL/hr; Infused Over: 60 mins; Site: left antecubital; 03:05 Follow up: IV Status: Completed infusion mv5 03:05 Drug: Ciprofloxacin 400 mg [ciprofloxacin 400 mg/200 mL in 5 % dextrose intravenous mv5 piggyback] Route: IVPB; Rate: 200 mL/hr; Infused Over: 60 mins; Site: left antecubital; Signatures: Dispatcher [employer] EDPR Kinjal Okeefe, RN RN Rasheed Lemos DO DO mm11 Sarita Noel,RN RN rs3 Taty Haque, Bernardo Braxton jp5 Lynn ChairezRN RN mv5 The chart was reviewed and I authenticate all verbal orders and agree with the evaluation and treatment provided.Attachments: 11/23 22:34 [facility] Payment Agreement jp5 MTDD
[2016-11-24 03:20] VITALS: BP 131/60
[2016-11-24 06:00] VITALS: BP 125/60
[2016-11-24] MEDS: metroNIDAZOLE 500 MG in APPROPRIATE DILUENT 1 EA IV SCH ×2 (09:27→17:28)
[2016-11-24] MEDS: SENOKOT S TAB PO SCH ×2 (09:27→20:49)
[2016-11-24] MEDS ORDERED: MOM 30ML SUSPENSION UDC PO PRN (12:15)
--- NOTE | 2016-11-24 12:22 | HPE ---
DATE OF ADMISSION: 11/24/2016 CHIEF COMPLAINT: Fever. HISTORY OF PRESENT ILLNESS: The patient is a 61-year-old female who recently was hospitalized for perforated diverticulitis with pericolonic abscess. This was on 11/04. She was discharged home 3 days later without having interventional radiology (IR) drainage due to the positioning of the abscess being unreachable, however, she did feel much better with just n.p.o. and antibiotics during the hospital stay. For the past 2 weeks, she has been on antibiotics, just finished this past Thursday. She has been feeling great, tolerating diet. No fevers. No nausea or vomiting. No abdominal pain. Over the weekend on Thursday, she started have a low grade fever which progressed up to 101 and she felt something was not right so she came into the emergency room last evening for evaluation. No nausea or vomiting. No change in bowel movements. They have been soft but no diarrhea or constipation. No abdominal pain. In the ER, her white count was slightly elevated back up to 14,[address] shows well-defined abscess next to the sigmoid that is more pronounced than it was on previous exam on the . Therefore plan was to admit her and have IR re-attempt drainage on this visit. PAST MEDICAL HISTORY: Anxiety. Gastroesophageal reflux disease (GERD). Pneumonia. History of pulmonary embolism (PE). PAST SURGICAL HISTORY: section. Right knee arthroscopic surgery. Gastric bypass. SOCIAL HISTORY: Denies any drug, alcohol, tobacco abuse. FAMILY HISTORY: Noncontributory. ALLERGIES: LATEX. HOME MEDICATIONS: - Cymbalta - omeprazole - Wellbutrin - Eliquis - Levaquin - Mucinex REVIEW OF SYSTEMS: Pertinent positives and negative as stated in HPI. PHYSICAL EXAMINATION: General: Alert and oriented times three. No acute distress. Vitals: Temperature 99.7, pulse 89, respirations 20, blood pressure 125/60, pulse ox 92% on room air. HEENT: Pupils equal, round, react to light and accommodation. Heart: S1, S2. Regular rate and rhythm. Lungs: Clear to auscultation bilaterally. Abdomen: Soft, nontender, nondistended. Bowel sounds positive. Extremities: No clubbing, cyanosis or edema. LABORATORY DATA: White count 14.8, hemoglobin 11.4, platelets 361. INR 1.21, potassium 3.7, total bilirubin 0.4. IMAGING STUDIES: CT abdomen and pelvis shows a 5.4 x 4.3 cm perisigmoid abscess. ASSESSMENT/PLAN: Patient is a 61-year-old female with complicated diverticulitis with perisigmoidal abscess. Recommendation at this time is to keep her n.p.o. on IV fluids and antibiotics and will wait for INR to attempt drainage of this abscess again. If they are able to successfully drain this, once she is afebrile for 24 hours and white count returns to normal, will plan to discharge her home with the drain in place and antibiotics for another 10 days. As long as she is doing well, will be able to remove the drain in the office next week.
[2016-11-24] MEDS ORDERED: LIDOCAINE 1% MDV 20ML VIAL As Ordered ONE (13:17)
[2016-11-24] MEDS: CIPROFLOXACIN 400 MG in APPROPRIATE DILUENT 1 EA IV SCH (14:57)
[2016-11-24] MEDS: buPROPion **SR TABLET** (ZYBAN) 150MG PO SCH (14:57)
[2016-11-24] MEDS: PERCOCET 5MG/325MG TAB PO PRN ×2 (14:58→20:50)
[2016-11-24 15:30] VITALS: BP 167/79
[2016-11-24 16:00] VITALS: BP 133/60
--- NOTE | 2016-11-24 17:34 | REP ---
CT GUIDED PELVIC ABSCESS DRAIN: The procedure was performed under the direct supervision of Dr. Zayas. The patient has a history of a estella-sigmoid abscess seen on a previous CAT scan performed earlier today. The risks and benefits of the procedure were explained to the patient and informed consent was obtained. The pelvic abscess was localized using CT guidance. The skin was prepped and draped in a sterile fashion. 1% Xylocaine was used as a local anesthetic. Using CT guidance and Seldinger technique an 8-[place] Skater APDL catheter was inserted into the abscess cavity. 15 mL of a purulent fluid was withdrawn and sent to the lab. The abscess cavity was flushed with four 10 mL sterile saline flushes resulting in a total of 40 mL of fluid returned. The catheter was affixed to the skin and a sterile dressing was applied. The catheter was connected to a gravity drainage bag. The patient tolerated the procedure well and there were no immediate complications. Reviewed by NATHAN Treviño 11/25/2016 12:52 PEdited and Signed by Satya Zayas MD 11/25/2016 03:28 P
[2016-11-24] MEDS: APIXABAN 5 MG TAB (ELIQUIS) PO SCH (20:49)
[2016-11-24] MEDS: DULoxetine 30 MG CAP (CYMBALTA) PO SCH (20:49)
[2016-11-24] MEDS: zolPIDEM TARTRATE 5 MG TAB PO SCH (20:49)
[2016-11-24 22:00] VITALS: BP 122/66
[2016-11-25] MEDS: LR 1,000 ML IV SCH ×2 (01:21→10:39)
[2016-11-25] MEDS: CIPROFLOXACIN 400 MG in APPROPRIATE DILUENT 1 EA IV SCH ×2 (01:21→14:00)
[2016-11-25] MEDS: metroNIDAZOLE 500 MG in APPROPRIATE DILUENT 1 EA IV SCH ×3 (04:35→17:41)
[2016-11-25 06:00] VITALS: BP 143/70
[2016-11-25 07:08] LABS: MEAN CORPUSCULAR HGB CONC 31.5 g/dl (32.0-36.5); RED CELL DISTRIBUTION WIDTH 14.8 % (11.5-14.5); WHITE BLOOD COUNT 11.3 K/mm3 (4.0-10.0)
[2016-11-25 07:19] LABS: ANION GAP 7 MEQ/L (8-16); BLOOD UREA NITROGEN 6 MG/DL (7-18); CALCIUM LEVEL 8.1 MG/DL (8.8-10.2); CARBON DIOXIDE LEVEL 29 MEQ/L (21-32); CHLORIDE LEVEL 108 MEQ/L (98-107); CREATININE FOR GFR 0.51 MG/DL (0.55-1.02); GLOMERULAR FILTRATION RATE > 60.0 (>45); GLUCOSE, FASTING 90 MG/DL (80-110); MAGNESIUM LEVEL 2.2 MG/DL (1.8-2.4); POTASSIUM SERUM 3.8 MEQ/L (3.5-5.1); SODIUM LEVEL 144 MEQ/L (136-145)
[2016-11-25 08:45] VITALS: BP 146/65
[2016-11-25] MEDS: SENOKOT S TAB PO SCH ×2 (09:11→22:27)
[2016-11-25] MEDS: buPROPion **SR TABLET** (ZYBAN) 150MG PO SCH (09:11)
[2016-11-25 11:00] VITALS: BP 150/72
[2016-11-25 14:00] VITALS: BP 148/76
[2016-11-25 22:00] VITALS: BP 133/66
[2016-11-25] MEDS: zolPIDEM TARTRATE 5 MG TAB PO SCH (22:25)
[2016-11-25] MEDS: APIXABAN 5 MG TAB (ELIQUIS) PO SCH (22:26)
[2016-11-25] MEDS: DULoxetine 30 MG CAP (CYMBALTA) PO SCH (22:27)
[2016-11-26] MEDS: CIPROFLOXACIN 400 MG in APPROPRIATE DILUENT 1 EA IV SCH (01:03)
[2016-11-26 01:45] VITALS: BP 139/65
[2016-11-26 04:00] VITALS: BP 133/73
[2016-11-26] MEDS: metroNIDAZOLE 500 MG in APPROPRIATE DILUENT 1 EA IV SCH (04:01)
--- NOTE | 2016-11-26 04:15 | EDDOCDS ---
Physician Documentation [facility] Name: Melissa Peck Age: 61 yrs Sex: Female : 1955 Arrival Date: 11/23/2016 Time: 20:28 Bed 9 Private MD: Todd Zapata WAT Disposition: 11/24/16 01:40 Hospitalization ordered by Mendoza Menchaca for Inpatient Admission. Preliminary diagnosis is Diverticulitis of intestine, part unspecified, with perforation and abscess - worsened. - Bed requested for 5 [place]. - Status is Inpatient Admission. mv5 - Condition is Stable. - Problem is an acute exacerbation. - Symptoms have improved. Historical: - Allergies: Latex (Hives); - Home Meds: 1. Cymbalta 60 mg Oral cpDR 1 cap once daily 2. Wellbutrin 100 mg Oral tab 2 times per day 3. Eliquis 5 mg oral tab 1 tab 2 times per day 4. Cough Syrup oral liqd as needed 5. Levaquin 500 mg Oral tab 1 tab once daily 6. Flagyl 500 mg Oral tab 3 times per day - PMHx: Anxiety; GERD; PE; Pneumonia; Diverticulitis; - PSHx: ; Right knee arthroscopic surgery; Gastric Bypass; - Social history: Smoking status: Patient states was never smoker of tobacco. No barriers to communication noted, The patient speaks fluent Vietnamese. - Family history: No immediate family members are acutely ill. - : The pt / caregiver states he / she is on anticoagulants: Eliquis Home medication list is obtained from the patient. - Exposure Risk Screening:: None identified. Vital Signs: 11/23 20:31 BP 142 / 72; Pulse 108; Resp 18; Temp 100.8(O); Pulse Ox 96% on R/A; Weight 88.45 kg / ct3 195 lbs (R); Height 4 ft. 10 in. (147.32 cm) (R); Pain 2/10; 22:08 BP 131 / 60 (auto/); mv5 22:09 Pulse 100 MON; Pulse Ox 96% ; mv5 22:37 BP 135 / 71 (auto/); mv5 22:37 Pulse 106 MON; Pulse Ox 94% ; mv5 23:07 BP 128 / 58 (auto/); mv5 23:07 Pulse 102 MON; Pulse Ox 94% ; mv5 23:37 BP 129 / 68 (auto/); mv5 23:38 Pulse 104 MON; Resp 18; Temp 102.7(TE); Pulse Ox 92% ; mv5 02 00:07 BP 124 / 60 (auto/); mv5 00:07 Pulse 104 MON; Pulse Ox 92% ; mv5 00:21 BP 137 / 65 (auto/); mv5 00:24 Pulse 100 MON; Pulse Ox 93% ; mv5 00:51 BP 129 / 60; Pulse 102 MON; Resp 18; Temp 99.0(TE); Pulse Ox 92% ; mv5 01:21 BP 131 / 60 (auto/); mv5 01:21 Pulse 98 MON; Pulse Ox 91% ; mv5 01:51 BP 130 / 62 (auto/); mv5 01:51 Pulse 96 MON; Pulse Ox 92% ; mv5 02:21 BP 124 / 59 (auto/); mv5 02:22 BP 124 / 59; Pulse 88 MON; Resp 16; Temp 99.7(TE); Pulse Ox 94% on R/A; mv5 11/23 20:31 Body Mass Index 40.75 (88.45 kg, 147.32 cm) ct3 MDM: 11/23 21:37 -Blood Culture (Adults Only), peripheral from different site, or from device/port/PICC mm11 etc. if present ordered. 21:37 IV Saline Lock ordered. mm11 21:37 Undress patient appropriately for examination ordered. mm11 21:37 Instructional Facilitator/Pulse Ox/q 30 min VS ordered. mm11 21:38 -Blood Culture (Adults Only), peripheral from different site, or from device/port/PICC dinorah etc. if present complete. 21:38 Amylase Ordered. EDMS 21:38 Basic Metabolic Profile Ordered. EDMS 21:38 CBC with Diff Ordered. EDMS 21:38 Cardiac Injury Profile Ordered. EDMS 21:38 Lipase Ordered. EDMS 21:39 Liver Profile Ordered. EDMS 21:39 Partial Thromboplastin Time Ordered. EDMS 21:39 Prothrombin Time Profile\E\INR Ordered. EDMS 21:39 Troponin Ordered. EDMS 21:39 -Blood Culture Ordered. EDMS 21:39 CT ABD & PELVIS: IV and Oral Contrast Ordered. EDMS 21:39 NOTHING BY MOUTH+DIET ordered. EDMS 21:43 BLOOD CULTURES Ordered. EDMS 22:12 Diatrizoate Meglumine & Sodium Liquid 10 ml PO once; mix in 290cc of water ordered. mv5 22:15 UA Ordered. EDMS 22:15 Urine Culture Ordered. EDMS 22:34 [facility] Payment Agreement was scanned into [employer] and attached to record. jp5 22:34 Financial registration complete. jp5 22:53 Diatrizoate Meglumine & Sodium Liquid 10 ml PO once; mix in 290cc of water ordered. mv5 23:59 Acetaminophen Tablet 650 mg PO once ordered. mm11 23:59 Amylase Reviewed. mm11 23:59 Basic Metabolic Profile Reviewed. mm11 23:59 CBC with Diff Reviewed. mm11 23:59 Cardiac Injury Profile Reviewed. mm11 23:59 Liver Profile Reviewed. mm11 23:59 Prothrombin Time Profile\E\INR Reviewed. mm11 23:59 Lipase Reviewed. mm11 23:59 Partial Thromboplastin Time Reviewed. mm11 23:59 Troponin Reviewed. mm11 11/24 01:23 UA Reviewed. mm11 01:23 CT ABD & PELVIS: IV and Oral Contrast Reviewed. mm11 01:24 BED REQUEST+ADM ordered. EDMS 01:28 Ciprofloxacin 400 mg IVPB at 200 mL/hr once over 60 mins ordered. mm11 01:28 metroNIDAZOLE 500 mg IVPB at 100 mL/hr once over 60 mins ordered. mm11 02:07 Admission / Observation Status ordered. EDMS 02:07 NPO DIET ordered. EDMS 02:09 ABCESS DRAIN ([facility]ED[facility] PLACE) US Ordered. EDMS 14:29 T-Sheet-- Draft Copy was scanned into [employer] and attached to record. gb Administered Medications: 11/23 22:12 Drug: Diatrizoate Meglumine & Sodium 10 ml [diatrizoate meglumine and diat.sodium 66 mv5 %-10 % oral solution (10 mL)] Route: PO; 11/24 00:00 Follow up: Response: No Adverse Reaction mv5 11/23 22:45 Drug: Diatrizoate Meglumine & Sodium 10 ml [diatrizoate meglumine and diat.sodium 66 mv5 %-10 % oral solution (10 mL)] Route: PO; 11/24 00:00 Follow up: Response: No Adverse Reaction mv5 00:04 Drug: Acetaminophen 650 mg [acetaminophen 325 mg tablet (2 tabs)] Route: PO; mv5 03:05 Follow up: Response: No Adverse Reaction mv5 01:53 Drug: metroNIDAZOLE 500 mg [metronidazole 500 mg/100 mL-sodium chloride(iso) mv5 intravenous piggyback] Route: IVPB; Rate: 100 mL/hr; Infused Over: 60 mins; Site: left antecubital; 03:05 Follow up: IV Status: Completed infusion mv5 03:05 Drug: Ciprofloxacin 400 mg [ciprofloxacin 400 mg/200 mL in 5 % dextrose intravenous mv5 piggyback] Route: IVPB; Rate: 200 mL/hr; Infused Over: 60 mins; Site: left antecubital; Signatures: Dispatcher [employer] EDMS Kinjal Okeefe, RN RN daq Magdalena Reyna, Juan Miguel Reg Rasheed Petty, DO mm11 Sarita Noel RN RN rs3 Taty Haque, SOLAR HOT WATER INSTALLER SOLAR HOT WATER INSTALLER Bernardo Murdock jp5 Lynn ChairezRN RN mv5 The chart was reviewed and I authenticate all verbal orders and agree with the evaluation and treatment provided.Attachments: 11/23 22:34 [facility] Payment Agreement jp5 11/24 14:29 T-Sheet-- Draft Copy gb Chart Complete MTDD
--- NOTE | 2016-11-26 04:15 | EDDOCDS ---
Nurse's Notes [facility] Name: Melissa Peck Age: 61 yrs Sex: Female : 1955 Arrival Date: 11/23/2016 Time: 20:28 Bed 9 Private MD: Todd Zapata WAT Diagnosis: Diverticulitis of intestine, part unspecified, with perforation and abscess-worsened Presentation: 11/23 20:32 Presenting complaint: Patient states: fever on and off today, abdominal pressure feels rs3 like constipated. taken senna this evening without any results. Was admitted for diverticulitis 3 weeks ago. Adult Sepsis Screening: The patient does not have new or worsening altered mentation. Patient's respiratory rate is less than 22. Systolic blood pressure is greater than 100. Patient has a qSOFA score of 0- Negative Sepsis Screen. Suicide/Homicide risk assessment- the patient denies having any suicidal and/or homicidal ideations and does not present with any other emotional, behavioral or mental health complaints. Status: Patient is not a nutrition services associate or dependent. Transition of care: patient was not received from another setting of care. 20:32 Acuity: CRYS Level 3 rs3 20:32 Method Of Arrival: Walkin/Carried/Asstd rs3 Triage Assessment: 20:36 General: Appears in no apparent distress. Pain: Location: abdomen. HIV screening NA for rs3 this visit Offered previously. Historical: - Allergies: Latex (Hives); - Home Meds: 1. Cymbalta 60 mg Oral cpDR 1 cap once daily 2. Wellbutrin 100 mg Oral tab 2 times per day 3. Eliquis 5 mg oral tab 1 tab 2 times per day 4. Cough Syrup oral liqd as needed 5. Levaquin 500 mg Oral tab 1 tab once daily 6. Flagyl 500 mg Oral tab 3 times per day - PMHx: Anxiety; GERD; PE; Pneumonia; Diverticulitis; - PSHx: ; Right knee arthroscopic surgery; Gastric Bypass; - Social history: Smoking status: Patient states was never smoker of tobacco. No barriers to communication noted, The patient speaks fluent Palestinian. - Family history: No immediate family members are acutely ill. - : The pt / caregiver states he / she is on anticoagulants: Eliquis Home medication list is obtained from the patient. - Exposure Risk Screening:: None identified. Screenin:56 Screening information is obtained from the patient. Fall risk: No risks identified. mv5 Assistance ADL's: requires no assistance with activities of daily living. Abuse/DV Screen: The patient / caregiver reports he/she is: not in a situation that causes fear, pain or injury. Nutritional screening: No deficits noted. Advance Directives: There is no active DNR order. home support is adequate. Assessment: 21:56 General: Appears in no apparent distress, well nourished, well groomed, Behavior is mv5 cooperative, pleasant, Family at bedside.. Pain: Denies pain. Neurological: Level of Consciousness is awake, alert, Oriented to person, place, time. Cardiovascular: Capillary refill < 3 seconds Heart tones S1 S2 present Pulses are all present. Rhythm is regular. Respiratory: Airway is patent Respiratory effort is even, unlabored, Respiratory pattern is regular, symmetrical, Breath sounds are clear bilaterally. GI: Abdomen is flat, Bowel sounds present X 4 quads. Abd is soft and non tender X 4 quads. : No deficits noted. Derm: Skin is pink, warm & dry. 22:14 Cardiovascular: Rhythm is sinus tachycardia No ectopy. mv5 22:28 General: Appears in no apparent distress, comfortable, Behavior is cooperative, mv5 pleasant. Pain: Denies pain. Respiratory: Airway is patent Respiratory effort is even, unlabored, Respiratory pattern is regular, symmetrical. Derm: Skin is pink, warm & dry. 22:50 General: Pt tolerating PO contrast well at this time. Encouraged to provide urine mv5 sample when able.. 23:27 General: Appears in no apparent distress, Pt OOB to restroom.. Pain: Denies pain. mv5 Respiratory: Airway is patent Respiratory effort is even, unlabored, Respiratory pattern is regular, symmetrical. Derm: Skin is pink, warm & dry. 11/24 00:05 General: Appears in no apparent distress, comfortable, Temp elevated upon VS re-check. mv5 MD aware, orders received.. Pain: Denies pain. Cardiovascular: Rhythm is sinus tachycardia No ectopy. Respiratory: Airway is patent Respiratory effort is even, unlabored, Respiratory pattern is regular, symmetrical. Derm: Skin is pink, warm & dry. 00:48 General: Appears in no apparent distress. Respiratory: Airway is patent Respiratory mv5 effort is even, unlabored, Respiratory pattern is regular, symmetrical. Derm: Skin is pink, warm & dry. 01:54 General: Appears in no apparent distress, comfortable. Pain: Denies pain. Respiratory: mv5 Airway is patent Respiratory effort is even, unlabored, Respiratory pattern is regular, symmetrical. Derm: Skin is pink, warm & dry. 03:07 General: Appears in no apparent distress, comfortable. Pain: Denies pain. Respiratory: mv5 Airway is patent Respiratory effort is even, unlabored, Respiratory pattern is regular, symmetrical. Derm: Skin is pink, warm & dry. Vital Signs: 11/23 20:31 BP 142 / 72; Pulse 108; Resp 18; Temp 100.8(O); Pulse Ox 96% on R/A; Weight 88.45 kg ct3 (R); Height 4 ft. 10 in. (147.32 cm) (R); Pain 11/21; 22:08 BP 131 / 60 (auto/); mv5 22:09 Pulse 100 MON; Pulse Ox 96% ; mv5 22:37 BP 135 / 71 (auto/); mv5 22:37 Pulse 106 MON; Pulse Ox 94% ; mv5 23:07 BP 128 / 58 (auto/); mv5 23:07 Pulse 102 MON; Pulse Ox 94% ; mv5 23:37 BP 129 / 68 (auto/); mv5 23:38 Pulse 104 MON; Resp 18; Temp 102.7(TE); Pulse Ox 92% ; mv5 / 00:07 BP 124 / 60 (auto/); mv5 00:07 Pulse 104 MON; Pulse Ox 92% ; mv5 00:21 BP 137 / 65 (auto/); mv5 00:24 Pulse 100 MON; Pulse Ox 93% ; mv5 00:51 BP 129 / 60; Pulse 102 MON; Resp 18; Temp 99.0(TE); Pulse Ox 92% ; mv5 01:21 BP 131 / 60 (auto/); mv5 01:21 Pulse 98 MON; Pulse Ox 91% ; mv5 01:51 BP 130 / 62 (auto/); mv5 01:51 Pulse 96 MON; Pulse Ox 92% ; mv5 02:21 BP 124 / 59 (auto/); mv5 02:22 BP 124 / 59; Pulse 88 MON; Resp 16; Temp 99.7(TE); Pulse Ox 94% on R/A; mv5 11/23 20:31 Body Mass Index 40.75 (88.45 kg, 147.32 cm) ct3 Vitals: 11/23 20:31 Log In Time: November 23, 2016 at 20:28. ct3 ED Course: 20:29 Patient visited by Phyllis Rodas PCA. ct3 20:29 Patient moved to Waiting ct3 20:30 Todd Zapata is Private Physician. ct3 20:32 Patient moved to Pre RCE ct3 20:34 Triage Initiated rs3 20:43 Patient moved to Triage 3 ttb 21:13 Dinorah Keller, GUS is Primary Nurse. slm 21:13 yLnn Chairez,GUS is Primary Nurse. slm 21:13 Patient moved to 9 slm 21:16 Rasheed Langley DO is Attending Physician. mm11 21:16 Patient visited by Rasheed Langley DO. mm11 21:40 Patient visited by Rasheed Langley DO. mm11 21:56 The patient / caregiver is instructed regarding the plan of care and ED course. mv5 21:56 Inserted saline lock: 20 gauge in left antecubital area and blood collected. The mv5 patient tolerated the procedure well. 21:58 BLOOD CULTURES Sent. mv5 21:58 -Blood Culture Sent. mv5 21:58 Amylase Sent. mv5 21:58 Basic Metabolic Profile Sent. mv5 21:58 CBC with Diff Sent. mv5 21:58 Cardiac Injury Profile Sent. mv5 21:58 Lipase Sent. mv5 21:58 Liver Profile Sent. mv5 21:58 Partial Thromboplastin Time Sent. mv5 21:58 Prothrombin Time Profile\E\INR Sent. mv5 21:58 Troponin Sent. mv5 22:17 Patient visited by Lynn Chairez RN. mv5 22:34 [facility] Payment Agreement was scanned into [employer] and attached to record. jp5 22:47 Primary Nurse role handed off by Dinorah Keller, GUS ar3 22:50 Patient visited by Lynn Chairez,GUS. mv5 23:27 Patient visited by Lynn Chairez,GUS. mv5 23:58 Patient visited by Lynn Chairez RN. mv5 11/24 00:47 Patient visited by Rasheed Langley DO. mm11 00:53 Patient visited by Adonis Maria PCA. mdr 00:53 Assisted to bathroom. mdr 01:00 CT ABD & PELVIS: IV and Oral Contrast Returned. EDMS 01:23 Patient visited by Rasheed Langley DO. mm11 01:40 Mendoza Menchaca MD is Hospitalizing Provider. mm11 01:54 Patient visited by Lynn Chairez RN. mv5 03:07 No procedures done that require assistance. mv5 14:29 T-Sheet-- Draft Copy was scanned into [employer] and attached to record. gb Administered Medications: 11/23 22:12 Drug: Diatrizoate Meglumine & Sodium 10 ml [diatrizoate meglumine and diat.sodium 66 mv5 %-10 % oral solution (10 mL)] Route: PO; 11/24 00:00 Follow up: Response: No Adverse Reaction mv5 11/23 22:45 Drug: Diatrizoate Meglumine & Sodium 10 ml [diatrizoate meglumine and diat.sodium 66 mv5 %-10 % oral solution (10 mL)] Route: PO; 11/24 00:00 Follow up: Response: No Adverse Reaction mv5 00:04 Drug: Acetaminophen 650 mg [acetaminophen 325 mg tablet (2 tabs)] Route: PO; mv5 03:05 Follow up: Response: No Adverse Reaction mv5 01:53 Drug: metroNIDAZOLE 500 mg [metronidazole 500 mg/100 mL-sodium chloride(iso) mv5 intravenous piggyback] Route: IVPB; Rate: 100 mL/hr; Infused Over: 60 mins; Site: left antecubital; 03:05 Follow up: IV Status: Completed infusion mv5 03:05 Drug: Ciprofloxacin 400 mg [ciprofloxacin 400 mg/200 mL in 5 % dextrose intravenous mv5 piggyback] Route: IVPB; Rate: 200 mL/hr; Infused Over: 60 mins; Site: left antecubital; Order Results: Lab Order: Amylase; SPEC'M 11/23/16 21:52 Test: AMYLASE; Value: 24; Range: 25-115; Abnormal: Below low normal; Units: U/L; Status: F Lab Order: Basic Metabolic Profile; SPEC'M 11/23/16 21:52 Test: GLUCOSE, FASTING; Value: 97; Range: 80-110; Units: MG/DL; Status: F Test: BLOOD UREA NITROGEN; Value: 11; Range: 7-18; Units: MG/DL; Status: F Test: CREATININE FOR GFR; Value: 0.92; Range: 0.55-1.02; Units: MG/DL; Status: F Test: GLOMERULAR FILTRATION RATE; Value: > 60.0; Range: >45; Status: F Test: SODIUM LEVEL; Value: 142; Range: 136-145; Units: MEQ/L; Status: F Test: POTASSIUM SERUM; Value: 3.7; Range: 3.5-5.1; Units: MEQ/L; Status: F Test: CHLORIDE LEVEL; Value: 105; Range: 98-107; Units: MEQ/L; Status: F Test: CARBON DIOXIDE LEVEL; Value: 29; Range: 21-32; Units: MEQ/L; Status: F Test: ANION GAP; Value: 8; Range: 8-16; Units: MEQ/L; Status: F Test: CALCIUM LEVEL; Value: 8.1; Range: 8.8-10.2; Abnormal: Below low normal; Units: MG/DL; Status: F Test Note: ; Units are mL/min/1.73 m2 Chronic Kidney Disease Staging per NKF: Stage I & II GFR >=60 Normal to Mildly Decreased Stage III GFR 30-59 Moderately Decreased Stage IV GFR 15-29 Severely Decreased Stage V GFR <15 Very Little GFR Left ESRD GFR <15 on MINE INSPECTOR Lab Order: CBC with Diff; SPEC'M 11/23/16 21:52 Test: WHITE BLOOD COUNT; Value: 14.8; Range: 4.0-10.0; Abnormal: Above high normal; Units: K/mm3; Status: F Test: RED BLOOD COUNT; Value: 3.97; Range: 4.00-5.40; Abnormal: Below low normal; Units: M/mm3; Status: F Test: HEMOGLOBIN; Value: 11.4; Range: 12.0-16.0; Abnormal: Below low normal; Units: g/dl; Status: F Test: HEMATOCRIT; Value: 36.0; Range: 36.0-47.0; Units: %; Status: F Test: MEAN CORPUSCULAR VOLUME; Value: 90.7; Range: 80.0-96.0; Units: fl; Status: F Test: MEAN CORPUSCULAR HEMOGLOBIN; Value: 28.7; Range: 27.0-33.0; Units: pg; Status: F Test: MEAN CORPUSCULAR HGB CONC; Value: 31.7; Range: 32.0-36.5; Abnormal: Below low normal; Units: g/dl; Status: F Test: RED CELL DISTRIBUTION WIDTH; Value: 15.0; Range: 11.5-14.5; Abnormal: Above high normal; Units: %; Status: F Test: PLATELET COUNT, AUTOMATED; Value: 361; Range: 150-450; Units: k/mm3; Status: F Test: NEUTROPHILS %; Value: 82.1; Range: 36.0-66.0; Abnormal: Above high normal; Units: %; Status: F Test: LYMPH %; Value: 9.2; Range: 24.0-44.0; Abnormal: Below low normal; Units: %; Status: F Test: MONO %; Value: 6.5; Range: 0.0-5.0; Abnormal: Above high normal; Units: %; Status: F Test: EOS %; Value: 0.9; Range: 0.0-3.0; Units: %; Status: F Test: BASO %; Value: 0.2; Range: 0.0-1.0; Units: %; Status: F Test: LARGE UNSTAINED CELL %; Value: 1.1; Range: 0.0-4.0; Units: %; Status: F Test: NEUTROPHILS #; Value: 12.2; Range: 1.8-7.7; Abnormal: Above high normal; Units: K/mm3; Status: F Test: LYMPH #; Value: 1.5; Range: 1.5-4.5; Units: K/mm3; Status: F Test: MONO #; Value: 1.0; Range: 0.0-0.8; Abnormal: Above high normal; Units: K/mm3; Status: F Test: EOS #; Value: 0.1; Range: 0.0-0.50; Units: K/mm3; Status: F Test: BASO #; Value: 0.0; Range: 0.0-0.2; Units: K/mm3; Status: F Test: LARGE UNSTAINED CELL #; Value: 0.2; Range: 0.0-0.4; Units: K/mm3; Status: F Lab Order: Cardiac Injury Profile; [facility] 11/23/16 21:52 Test: CPK CREATINE PHOSPHOKINASE; Value: 38; Range: 26-192; Units: U/L; Status: F Test: CK-MB VALUE MASS; Value: 1.6; Range: 0.0-3.6; Units: NG/ML; Status: F Test: MB/CK RELATIVE INDEX; Value: 4.21; Range: < OR =4; Abnormal: Above high normal; Status: F Test Note: ; DIAGNOSIS CRITERIA MMB ng/ml Relative Index (RI) NON-AMI < or = 5 N/A ALVAREZ ZONE > 5 < or = 4 AMI > 5 > 4 Lab Order: Lipase; [facility] 11/23/16 21:52 Test: LIPASE; Value: 78; Range: 73-393; Units: U/L; Status: F Lab Order: Liver Profile; [facility] 11/23/16 21:52 Test: AST/SGOT; Value: 12; Range: 15-37; Abnormal: Below low normal; Units: U/L; Status: F Test: ALT/SGPT; Value: 10; Range: 12-78; Abnormal: Below low normal; Units: U/L; Status: F Test: ALKALINE PHOSPHATASE; Value: 58; Range: 45-117; Units: U/L; Status: F Test: BILIRUBIN,TOTAL; Value: 0.4; Range: 0.2-1.0; Units: MG/DL; Status: F Test: BILIRUBIN,DIRECT; Value: 0.1; Range: 0.0-0.2; Units: MG/DL; Status: F Test: TOTAL PROTEIN; Value: 6.3; Range: 6.4-8.2; Abnormal: Below low normal; Units: GM/DL; Status: F Test: ALBUMIN; Value: 3.0; Range: 3.2-5.2; Abnormal: Below low normal; Units: GM/DL; Status: F Test: ALBUMIN/GLOBULIN RATIO; Value: 0.91; Range: 1.00-1.93; Abnormal: Below low normal; Status: F Lab Order: Partial Thromboplastin Time; [facility] 11/23/16 21:52 Test: PARTIAL THROMBOPLASTIN TIME; Value: 30.5; Range: 26.6-37.1; Units: SECONDS; Status: F Lab Order: Prothrombin Time Profile\E\INR; [facility] 11/23/16 21:52 Test: PROTHROMBIN TIME; Value: 15.4; Range: 12.3-14.5; Abnormal: Above high normal; Units: SECONDS; Status: F Test: INR; Value: 1.21; Status: F Test Note: ; THERAPUTIC HUMAN INR VALUES INDICATIONS NORMAL RANGES PROPHYLAXIS/TREATMENT OF: VENOUS THROMBOSIS 2.0-3.0 PULMONARY EMBOLISM 2.0-3.0 PREVENTION OF SYSTEMIC EMBOLISM FROM: TISSUE HEART VALVES 2.0-3.0 ACUTE MYOCARDIAL INFARCTION 2.0-3.0 VALVULAR HEART DISEASE 2.0-3.0 ATRIAL FIBRILLATION 2.0-3.0 MECHANICAL VALVES(HIGH RISK) 2.5-3.5 RECURRENT MYOCARDIAL INFARCTION 2.5-3.5 Lab Order: Troponin; [facility] 11/23/16 21:52 Test: TROPONIN I; Value: < 0.02; Range: < 0.10; Units: NG/ML; Status: F Test Note: ; Troponin I Reference Interval for [place] LOCI: 99th Percentile= 0.00-0.045 ng/ml Risk Stratification: <= 0.10 ng/ml Decreased Risk for Adverse Clinical Events. 0.10-1.50 ng/ml Increased Risk for Adverse Clinical Events. Evaluation of additional criterion and/or repeat testing in 2-6 hours is suggested to rule out myocardial damage. >= 1.50 ng/ml Indicative of Myocardial Injury. Lab Order: UA; [facility] 11/23/16 23:36 Test: APPEARANCE, URINE; Value: CLEAR; Range: CLEAR; Status: F Test: COLOR, URINE; Value: YELLOW; Range: YELLOW; Status: F Test: PH,URINE; Value: 7.0; Range: 5.0-9.0; Units: UNITS; Status: F Test: SPECIFIC GRAVITY URINE AUTO; Value: 1.013; Range: 1.002-1.035; Status: F Test: PROTEIN, URINE AUTO; Value: NEGATIVE; Range: NEGATIVE; Units: mg/dL; Status: F Test: GLUCOSE, URINE (UA) AUTO; Value: NEGATIVE; Range: NEGATIVE; Units: mg/dL; Status: F Test: KETONE, URINE AUTO; Value: TRACE; Range: NEGATIVE; Abnormal: Above high normal; Units: mg/dL; Status: F Test: UROBILINOGEN, URINE AUTO; Value: 0.2; Range: 0.0-2.0; Units: mg/dL; Status: F Test: BILIRUBIN, URINE AUTO; Value: NEGATIVE; Range: NEGATIVE; Status: F Test: NITRITE, URINE AUTO; Value: NEGATIVE; Range: NEGATIVE; Status: F Test: LEUKOCYTE ESTERASE, URINE AUTO; Value: NEGATIVE; Range: NEGATIVE; Status: F Test: BLOOD, URINE BLOOD; Value: 2+; Range: NEGATIVE; Abnormal: Above high normal; Status: F Test: WBC, URINE AUTO; Value: 1; Range: 0-3; Units: /HPF; Status: F Test: RBC, URINE AUTO; Value: 9; Range: 0-3; Abnormal: Above high normal; Units: /HPF; Status: F Test: BACTERIA, URINE AUTO; Value: 1+; Range: NEGATIVE; Abnormal: Above high normal; Status: F Test: SQUAMOUS EPITHELIAL CELL UR AU; Value: 2; Range: 0-6; Units: /HPF; Status: F Test: HYALINE CAST, URINE AUTO; Value: 0; Range: 0-1; Units: /LPF; Status: F Radiology Order: CT ABD & PELVIS: IV and Oral Contrast Test: CT ABD & PELVIS: IV and Oral Contrast REASON FOR EXAMINATION: abd pain, hx of perf; ; CLINICAL HISTORY: Abdominal pain.; TECHNIQUE: Multiple axial, sagittal and coronal CT images were obtained through the abdomen and pelvi; s after administration of oral and intravenous contrast material.; COMMENTS:; Comparison is made to the prior exam performed on 11/04/2016.; There is increase in the size of the perisigmoid abscess formation. It measures 5.4x4.3 cm on the cur; rent exam.; No change in mild hepatomegaly with fat infiltration. There is no intra or extrahepatic biliary ducta; l dilatation. The spleen is normal. The gallbladder contains multiple gallstones. The pancreas is of; normal contour and attenuation characteristics. There is no evidence of adrenal mass.; Both kidneys demonstrate prompt and equal nephrograms. The kidneys are normal in size, shape and conf; iguration. There is no evidence of renal or ureteral mass. No renal or ureteral calculi are identifie; d. There is no hydroureter or hydronephrosis.; No evidence for appendicitis. There is no bowel wall thickening. No evidence for small or large manuel; l obstruction. There is no evidence of abdominal ascites or lymphadenopathy.; There is no evidence of intrinsic or extrinsic bladder mass. There is no pelvic ascites or lymphadeno; srinivasan. Unchanged cystitis.; Images of the lung bases show no evidence of pleural or parenchymal mass. There is interval appearanc; e of a small right pleural effusion. Unchanged small sliding-type hernia.; The bony structures are free of lytic or blastic lesions. Multilevel degenerative changes are seen in; volving the thoracolumbar spine. Scattered calcifications are seen involving the aorta and major bran; ches compatible with atherosclerosis.; IMPRESSION:; Increase in the size of the perisigmoid abscess formation.; Interval appearance of a small right pleural effusion.; Unchanged cholelithiasis.; Unchanged hepatomegaly with fat infiltration.; Gastric bypass surgery. This is unchanged.; Unchanged cystitis.; Unchanged ileus.; Thank you for your kind referral of this patient.; ; Outcome: 01:40 Decision to Hospitalize by Provider. mm11 03:07 Discharge Assessment: Patient awake, alert and oriented x 3. No cognitive and/or mv5 functional deficits noted. Patient verbalized understanding of disposition instructions. patient administered narcotics - no. The following High Risk Discharge criteria are identified: None. Admitted to Med/Surg accompanied by tech, with chart. Condition: stable. CT Study completed. Property :Personal belongings accompany Pt. 03:14 Patient left the ED. mv5 Signatures: Dispatcher [employer] EDMS Magdalena Reyna, Rasheed Velazquez DO DO mm11 Sarita Noel,RN RN rs3 Lissa Jones, MAT INSPECTOR MAT INSPECTOR ar3 Phyllis Rodas, MAT INSPECTOR MAT INSPECTOR ct3 Paula Haynes RN RN ttb Daniella Pearson,CHRISTINE GEOPHYSICAL PROSPECTING PERMIT AGENT Bernardo Mcgarry jp5 Adonsi Maria, MAT INSPECTOR MAT INSPECTOR Dylan Burnettn,RN RN mv5 Corrections: (The following items were deleted from the chart) 11/23 23:58 23:38 Pulse 104bpm; Monitor; Pulse Ox 92%; mv5 mv5 Chart Complete MTDD
--- NOTE | 2016-11-26 04:15 | EDDOCDS ---
Physician Documentation [facility], [place] Name: Melissa Peck Age: 61 yrs Sex: Female : 1955 Arrival Date: 11/23/2016 Time: 20:28 Bed 9 Private MD: Todd Zapata WAT Disposition: 11/24/16 01:40 Hospitalization ordered by Mendoza Menchaca for Inpatient Admission. Preliminary diagnosis is Diverticulitis of intestine, part unspecified, with perforation and abscess - worsened. - Bed requested for 5 O[place]io. - Status is Inpatient Admission. mv5 - Condition is Stable. - Problem is an acute exacerbation. - Symptoms have improved. Historical: - Allergies: Latex (Hives); - Home Meds: 1. Cymbalta 60 mg Oral cpDR 1 cap once daily 2. Wellbutrin 100 mg Oral tab 2 times per day 3. Eliquis 5 mg oral tab 1 tab 2 times per day 4. Cough Syrup oral liqd as needed 5. Levaquin 500 mg Oral tab 1 tab once daily 6. Flagyl 500 mg Oral tab 3 times per day - PMHx: Anxiety; GERD; PE; Pneumonia; Diverticulitis; - PSHx: ; Right knee arthroscopic surgery; Gastric Bypass; - Social history: Smoking status: Patient states was never smoker of tobacco. No barriers to communication noted, The patient speaks fluent Indonesian. - Family history: No immediate family members are acutely ill. - : The pt / caregiver states he / she is on anticoagulants: Eliquis Home medication list is obtained from the patient. - Exposure Risk Screening:: None identified. Vital Signs: 11/23 20:31 BP 142 / 72; Pulse 108; Resp 18; Temp 100.8(O); Pulse Ox 96% on R/A; Weight 88.45 kg / ct3 195 lbs (R); Height 4 ft. 10 in. (147.32 cm) (R); Pain 2/10; 22:08 BP 131 / 60 (auto/); mv5 22:09 Pulse 100 MON; Pulse Ox 96% ; mv5 22:37 BP 135 / 71 (auto/); mv5 22:37 Pulse 106 MON; Pulse Ox 94% ; mv5 23:07 BP 128 / 58 (auto/); mv5 23:07 Pulse 102 MON; Pulse Ox 94% ; mv5 23:37 BP 129 / 68 (auto/); mv5 23:38 Pulse 104 MON; Resp 18; Temp 102.7(TE); Pulse Ox 92% ; mv5 02 00:07 BP 124 / 60 (auto/); mv5 00:07 Pulse 104 MON; Pulse Ox 92% ; mv5 00:21 BP 137 / 65 (auto/); mv5 00:24 Pulse 100 MON; Pulse Ox 93% ; mv5 00:51 BP 129 / 60; Pulse 102 MON; Resp 18; Temp 99.0(TE); Pulse Ox 92% ; mv5 01:21 BP 131 / 60 (auto/); mv5 01:21 Pulse 98 MON; Pulse Ox 91% ; mv5 01:51 BP 130 / 62 (auto/); mv5 01:51 Pulse 96 MON; Pulse Ox 92% ; mv5 02:21 BP 124 / 59 (auto/); mv5 02:22 BP 124 / 59; Pulse 88 MON; Resp 16; Temp 99.7(TE); Pulse Ox 94% on R/A; mv5 11/23 20:31 Body Mass Index 40.75 (88.45 kg, 147.32 cm) ct3 MDM: 11/23 21:37 -Blood Culture (Adults Only), peripheral from different site, or from device/port/PICC mm11 etc. if present ordered. 21:37 IV Saline Lock ordered. mm11 21:37 Undress patient appropriately for examination ordered. mm11 21:37 Tank Car Mechanic/Pulse Ox/q 30 min VS ordered. mm11 21:38 -Blood Culture (Adults Only), peripheral from different site, or from device/port/PICC dinorah etc. if present complete. 21:38 Amylase Ordered. EDMS 21:38 Basic Metabolic Profile Ordered. EDMS 21:38 CBC with Diff Ordered. EDMS 21:38 Cardiac Injury Profile Ordered. EDMS 21:38 Lipase Ordered. EDMS 21:39 Liver Profile Ordered. EDMS 21:39 Partial Thromboplastin Time Ordered. EDMS 21:39 Prothrombin Time Profile\E\INR Ordered. EDMS 21:39 Troponin Ordered. EDMS 21:39 -Blood Culture Ordered. EDMS 21:39 CT ABD & PELVIS: IV and Oral Contrast Ordered. EDMS 21:39 NOTHING BY MOUTH+DIET ordered. EDMS 21:43 BLOOD CULTURES Ordered. EDMS 22:12 Diatrizoate Meglumine & Sodium Liquid 10 ml PO once; mix in 290cc of water ordered. mv5 22:15 UA Ordered. EDMS 22:15 Urine Culture Ordered. EDMS 22:34 [facility] Payment Agreement was scanned into [employer] and attached to record. jp5 22:34 Financial registration complete. jp5 22:53 Diatrizoate Meglumine & Sodium Liquid 10 ml PO once; mix in 290cc of water ordered. mv5 23:59 Acetaminophen Tablet 650 mg PO once ordered. mm11 23:59 Amylase Reviewed. mm11 23:59 Basic Metabolic Profile Reviewed. mm11 23:59 CBC with Diff Reviewed. mm11 23:59 Cardiac Injury Profile Reviewed. mm11 23:59 Liver Profile Reviewed. mm11 23:59 Prothrombin Time Profile\E\INR Reviewed. mm11 23:59 Lipase Reviewed. mm11 23:59 Partial Thromboplastin Time Reviewed. mm11 23:59 Troponin Reviewed. mm11 11/24 01:23 UA Reviewed. mm11 01:23 CT ABD & PELVIS: IV and Oral Contrast Reviewed. mm11 01:24 BED REQUEST+ADM ordered. EDMS 01:28 Ciprofloxacin 400 mg IVPB at 200 mL/hr once over 60 mins ordered. mm11 01:28 metroNIDAZOLE 500 mg IVPB at 100 mL/hr once over 60 mins ordered. mm11 02:07 Admission / Observation Status ordered. EDMS 02:07 NPO DIET ordered. EDMS 02:09 ABCESS DRAIN (NEEDLE PLACE) US Ordered. EDMS 14:29 T-Sheet-- Draft Copy was scanned into [employer] and attached to record. gb Administered Medications: 11/23 22:12 Drug: Diatrizoate Meglumine & Sodium 10 ml [diatrizoate meglumine and diat.sodium 66 mv5 %-10 % oral solution (10 mL)] Route: PO; 11/24 00:00 Follow up: Response: No Adverse Reaction mv5 11/23 22:45 Drug: Diatrizoate Meglumine & Sodium 10 ml [diatrizoate meglumine and diat.sodium 66 mv5 %-10 % oral solution (10 mL)] Route: PO; 11/24 00:00 Follow up: Response: No Adverse Reaction mv5 00:04 Drug: Acetaminophen 650 mg [acetaminophen 325 mg tablet (2 tabs)] Route: PO; mv5 03:05 Follow up: Response: No Adverse Reaction mv5 01:53 Drug: metroNIDAZOLE 500 mg [metronidazole 500 mg/100 mL-sodium chloride(iso) mv5 intravenous piggyback] Route: IVPB; Rate: 100 mL/hr; Infused Over: 60 mins; Site: left antecubital; 03:05 Follow up: IV Status: Completed infusion mv5 03:05 Drug: Ciprofloxacin 400 mg [ciprofloxacin 400 mg/200 mL in 5 % dextrose intravenous mv5 piggyback] Route: IVPB; Rate: 200 mL/hr; Infused Over: 60 mins; Site: left antecubital; Signatures: Dispatcher [employer] EDMS Kinjal Okeefe, RN RN daq Magdalena Reyna, Juan Miguel Reg Rasheed Petty, DO mm11 Sarita Noel RN RN rs3 Taty Haque, ONCOLOGY TECHNICIAN ONCOLOGY TECHNICIAN Bernardo Murdock jp5 Lynn ChairezRN RN mv5 The chart was reviewed and I authenticate all verbal orders and agree with the evaluation and treatment provided.Attachments: 11/23 22:34 [facility] Payment Agreement jp5 11/24 14:29 T-Sheet-- Draft Copy gb Chart Complete MTDD
[2016-11-26 07:22] LABS: MEAN CORPUSCULAR HEMOGLOBIN 28.9 pg (27.0-33.0); MEAN CORPUSCULAR HGB CONC 31.3 g/dl (32.0-36.5); MEAN CORPUSCULAR VOLUME 92.4 fl (80.0-96.0); RED CELL DISTRIBUTION WIDTH 15.1 % (11.5-14.5); WHITE BLOOD COUNT 7.8 K/mm3 (4.0-10.0)
[2016-11-26] MEDS ORDERED: FLAG500T PO (07:28)
[2016-11-26] MEDS ORDERED: CIPR500T89 PO (07:28)
[2016-11-26 07:29] LABS: ANION GAP 8 MEQ/L (8-16); BLOOD UREA NITROGEN 7 MG/DL (7-18); CALCIUM LEVEL 8.2 MG/DL (8.8-10.2); CARBON DIOXIDE LEVEL 28 MEQ/L (21-32); CHLORIDE LEVEL 108 MEQ/L (98-107); CREATININE FOR GFR 0.49 MG/DL (0.55-1.02); GLOMERULAR FILTRATION RATE > 60.0 (>45); GLUCOSE, FASTING 93 MG/DL (80-110); MAGNESIUM LEVEL 2.2 MG/DL (1.8-2.4); POTASSIUM SERUM 3.8 MEQ/L (3.5-5.1); SODIUM LEVEL 144 MEQ/L (136-145)
[2016-11-26 08:00] VITALS: BP 149/84
[2016-11-26] MEDS: buPROPion **SR TABLET** (ZYBAN) 150MG PO SCH (08:46)
[2016-11-26] MEDS: SENOKOT S TAB PO SCH (08:46)
--- NOTE | 2016-11-26 21:49 | DSES ---
DATE OF ADMISSION: 11/24/2016 DATE OF DISCHARGE: 11/26/2016 ADMISSION DIAGNOSIS: Intra-abdominal abscess. DISCHARGE DIAGNOSIS: Intra-abdominal abscess. HOSPITAL COURSE: The patient is a 61-year-old female whom I saw in the hospital two weeks ago with a perforated diverticulitis, with fluid in the pelvis, adnexa and sigmoid. She had an abscess that was not drainable at that time so she was treated with IV antibiotics for 2 weeks. She finished these antibiotics last Thursday and came in the hospital because of fevers this weekend and was found to have a well formed abscess next to the sigmoid colon and an elevated white count of 14.8. She was admitted to the hospital, kept nothing by mouth, IV fluids, antibiotics and had IR place a drain on the morning of the . She tolerated drain placement well. She has not had any pain this entire time. Her fevers have been gone since she has been in the hospital. The morning of the her white count would drop down from 14.8 to 11.3. She had a little bit of serosanguineous output in the drain, but very minimal amount, less than 15 mL. We watched it for one more day. This morning 215, white count down to 7.8. Again no pain. No nausea, no vomiting, no fevers, tolerating diet and having normal bowel movements. PLAN: Discharge home today. Follow up with me in the office next Thursday. I will keep her on by mouth antibiotics for 10 days, remove the drain in the office next Thursday and will follow up with her after that.
== END 2016-11-26 09:30 | disposition home or self-care (01) | DRG 392 ==
LOC: M ED 20:28 → M ED INP 11-24 01:55 → M MS5PR 11-24 03:20 → M PED 11-26 01:46
PROVIDERS: ADMIT Surgery; ATTEND Surgery
PROC: 0W9H30Z Drainage of Retroperitoneum with Drainage Device, Percutaneous Approach (ICD-10-PCS; principal; 2016-11-24)
DX: K57.80 Diverticulitis of intestine, part unspecified, with perforation and abscess without bleeding (principal); K21.9 Gastro-esophageal reflux disease without esophagitis; F41.9 Anxiety disorder, unspecified; Z86.711 Personal history of pulmonary embolism

== ENCOUNTER → 2017-05-29 | Outpatient (CLI) | payer OTHER ==
[~2017-05-29] MED LIST changes: +CIPR-249 PO; -CIPR500T89 PO; +LEVA1TAB2 PO; -LEVA500T PO; -PROA1AER IN; +PROAAER10 IN
--- NOTE | 2017-05-29 09:40 | REPMRS ---
Patient History The patient states she had a clinical breast exam in 05/28 Patient is postmenopausal. Family history of colorectal cancer in mother at age 74, breast cancer in maternal aunt at age 50 or over, breast cancer in maternal grandmother at age 50 or over, and breast cancer in 2 maternal cousins. Benign lumpectomy of the left breast, 1998. Digital Woman Screen Mammo: May 29, 2017 - Exam #: [id number] Bilateral CC and MLO view(s) were taken. Technologist: Indira Eaton, Technologist Prior study comparison: December 14, 2009, bilateral bilat screen digital mammo performed at [facility]. FINDINGS: There are scattered fibroglandular densities. The patient states that there are no palpable abnormalities or other breast complaints. There has been no change in the appearance of the mammogram from the prior studies. There is moderately dense fibroglandular tissue which is fairly symmetric. There are surgical clips in the left breast, unchanged. There is no interval development of dominant mass, areas of architectural distortion, or clustered microcalcification typical of malignancy. No significant changes when compared with prior studies. ASSESSMENT: BI-RADS/ACR category 2 mammogram. Benign finding(s). Recommendation Routine screening mammogram in 1 year (for women over age 40). This mammogram was interpreted with the aid of an FDA-approved computer-aided dectection system. A. Negative x-ray reports should not delay biopsy if a dominant or clinically suspicious mass is present. B. Not all cancers are identified by mammography. C. Adenosis and dense breast may obscure an underlying neoplasm. Electronically Signed By: Satya Valenzuela M.D. 05/29/17 [id number]
== END ==
LOC: M WHC 08:02
PROVIDERS: ATTEND Nurse Practitioner Family
DX: Z12.31 Encounter for screening mammogram for malignant neoplasm of breast (principal)
CPT/HCPCS: G0202; G0463

== ENCOUNTER → 2018-06-01 | Outpatient (CLI) | payer MEDICARE, OTHER | LOC: M WHC 08:12 | DX: Z12.31 Encounter for screening mammogram for malignant neoplasm of breast (principal); Z78.0 Asymptomatic menopausal state; Z92.89 Personal history of other medical treatment; Z80.3 Family history of malignant neoplasm of breast; Z12.4 Encounter for screening for malignant neoplasm of cervix; R87.9 Unspecified abnormal finding in specimens from female genital organs; N87.9 Dysplasia of cervix uteri, unspecified; Z12.12 Encounter for screening for malignant neoplasm of rectum | CPT/HCPCS: 77067; G0123 ==

== ENCOUNTER → 2018-06-01 | Outpatient (REF) | payer MEDICARE, OTHER | LOC: M SFHCWAGY 08:24 | DX: Z12.4 Encounter for screening for malignant neoplasm of cervix (principal); R87.9 Unspecified abnormal finding in specimens from female genital organs; N87.9 Dysplasia of cervix uteri, unspecified | CPT/HCPCS: G0123 ==

== ENCOUNTER → 2018-06-28 | Outpatient (REF) | payer MEDICARE, OTHER | LOC: M SFHCWAGY 13:26 | DX: D28.1 Benign neoplasm of vagina (principal) | CPT/HCPCS: 88304 ==

== ENCOUNTER → 2019-06-02 | Outpatient (CLI) | payer MEDICARE ==
[~2019-06-02] MED LIST changes: +ACET500T15 PO; -ACET50TAOT PO; -OMEP20CA3 PO; +OMEP20CA4 PO; +VITA100018 PO; -VITA100072 PO
--- NOTE | 2019-06-02 10:41 | REPMRS ---
Patient History The patient states she had a clinical breast exam in 05/2019. Family history of breast cancer at age 50 or over in maternal aunt, colorectal cancer at age 74 in mother, breast cancer at age 50 or over in maternal grandmother, breast cancer in maternal cousin, breast cancer in maternal cousin. Benign lumpectomy of the left breast, 1998. No Hormone Replacement Therapy Digital Woman Screen Mammo: June 02, 2019 - Exam #: [id number] Bilateral CC and MLO view(s) were taken. Technologist: Vanessa Wilhelm, Technologist Prior study comparison: June 01, 2018, bilateral digital woman screen mammo performed at [facility]. May 29, 2017, digital woman screen mammo performed at [facility]. May 28, 2016, digital woman screen mammo performed at [email or web address]. FINDINGS: There are scattered fibroglandular densities. There are surgical clips post lumpectomy again noted in the left central breast. There has been no change in the appearance of the mammogram from the prior studies. There is a mild amount of scattered fibroglandular density which is fairly symmetric. There is no interval development of dominant mass, architectural distortion, or grouped microcalcification suggestive of malignancy. 3-D tomosynthesis shows no additional findings. Assessment: BI-RADS/ACR category 2 mammogram. Benign Findings. Recommendation Routine screening mammogram of both breasts in 1 year (for women over age 40). This patient's Lifetime Breast Cancer Risk is estimated at 10.5 %. This mammogram was interpreted with the aid of an FDA-approved computer-aided dectection system. Electronically Signed By: Gage Vick MD 06/02/19 [id number]
== END ==
LOC: M WHC 08:33
PROVIDERS: ATTEND Nurse Practitioner Family
DX: Z12.31 Encounter for screening mammogram for malignant neoplasm of breast (principal); Z80.0 Family history of malignant neoplasm of digestive organs; Z80.3 Family history of malignant neoplasm of breast; Z86.018 Personal history of other benign neoplasm; Z91.89 Other specified personal risk factors, not elsewhere classified
CPT/HCPCS: 77063; 77067; 87624; G0123; G0463

== ENCOUNTER → 2019-06-02 | Outpatient (REF) | payer MEDICARE ==
[~2019-06-02] MED LIST changes: +OMEP1CAP73 PO; -OMEP20CA4 PO
[2019-06-08 00:06] LABS: HPV HYBRID CAPTURE II Positive (Negative)
== END ==
LOC: M SFHCWAGY 08:46
PROVIDERS: ATTEND Nurse Practitioner Family
DX: Z12.4 Encounter for screening for malignant neoplasm of cervix (principal); Z77.9 Other contact with and (suspected) exposures hazardous to health; R87.612 Low grade squamous intraepithelial lesion on cytologic smear of cervix (LGSIL)

== ENCOUNTER → 2019-07-04 | Outpatient (REF) | payer MEDICARE ==
[~2019-07-04] MED LIST changes: -OMEP1CAP73 PO; +OMEP20CA4 PO
== END ==
LOC: M SFHCWAGY 13:29
PROVIDERS: ATTEND Nurse Practitioner Women's Health
DX: R87.612 Low grade squamous intraepithelial lesion on cytologic smear of cervix (LGSIL) (principal)

== ENCOUNTER → 2020-06-05 | Outpatient (CLI) | payer MEDICARE ==
[~2020-06-05] MED LIST changes: +OMEP1CAP73 PO; -OMEP20CA4 PO
--- NOTE | 2020-06-05 10:18 | REPMRS ---
Patient History The patient states she had a clinical breast exam in May 2020.Family history of breast cancer at age 50 or over in maternal aunt, colorectal cancer at age 74 in mother, breast cancer at age 50 or over in maternal grandmother, breast cancer in maternal cousin, breast cancer in maternal cousin. Benign lumpectomy of the left breast, 1998. No Hormone Replacement Therapy Digital Woman Screen Mammo: June 05, 2020 - Exam #: [id number] Bilateral CC and MLO view(s) were taken. Technologist: Kala Constantino, Technologist Prior study comparison: June 02, 2019, bilateral digital woman screen mammo performed at [facility]. June 01, 2018, bilateral digital woman screen mammo performed at [facility]. May 29, 2017, digital woman screen mammo performed at [facility]. FINDINGS: There are scattered fibroglandular densities. The Volpara volumetric breast density category is:B. There are surgical clips again noted in the left breast. There has been no change in the appearance of the mammogram from the prior studies. There is a mild amount of scattered fibroglandular density which is fairly symmetric. There is no interval development of dominant mass, architectural distortion, or grouped microcalcification suggestive of malignancy. 3-D tomosynthesis shows no additional findings. Assessment: BI-RADS/ACR category 2 mammogram. Benign Findings. Recommendation Routine screening mammogram of both breasts in 1 year (for women over age 40). This patient's Lifetime Breast Cancer Risk is estimated at 9.9 %. This mammogram was interpreted with the aid of an FDA-approved computer-aided dectection system. Electronically Signed By: Gage Vick MD 06/05/20 [id number]
== END ==
LOC: M WHC 08:44
PROVIDERS: ATTEND Nurse Practitioner Family
DX: Z12.31 Encounter for screening mammogram for malignant neoplasm of breast (principal); Z12.4 Encounter for screening for malignant neoplasm of cervix; Z80.0 Family history of malignant neoplasm of digestive organs; Z86.018 Personal history of other benign neoplasm
CPT/HCPCS: 77063; 77067; 87624; G0101; G0123

== ENCOUNTER → 2021-09-10 | Outpatient (CLI) | payer MEDICARE ==
[~2021-09-10] MED LIST changes: +BUPR150T12 PO; -BUPR150T3 PO; -CYMB60CA3 PO; +CYMB60CA4 PO
== END ==
LOC: M WHC 10:28
PROVIDERS: ATTEND Nurse Practitioner Women's Health
DX: Z12.31 Encounter for screening mammogram for malignant neoplasm of breast (principal); Z80.0 Family history of malignant neoplasm of digestive organs; Z80.3 Family history of malignant neoplasm of breast; Z86.018 Personal history of other benign neoplasm

== ENCOUNTER → 2022-02-07 | Outpatient (REF) | payer MEDICARE | LOC: M LAB REF 14:30 | PROVIDERS: ATTEND Physician Assistant | DX: C44.612 Basal cell carcinoma of skin of right upper limb, including shoulder (principal) ==

== ENCOUNTER → 2022-03-18 | Outpatient (REF) | payer MEDICARE | LOC: M LAB REF 15:57 | PROVIDERS: ATTEND Surgery | DX: C44.91 Basal cell carcinoma of skin, unspecified (principal) ==

== ENCOUNTER → 2022-12-12 | Outpatient (CLI) | payer MEDICARE | LOC: M WHC 08:07 | PROVIDERS: ATTEND Nurse Practitioner Family | DX: Z12.31 Encounter for screening mammogram for malignant neoplasm of breast (principal) ==

== ENCOUNTER → 2023-07-13 | Outpatient (CLI) | payer MEDICARE ==
[2023-07-13 11:20] LABS: BASO # 0.1 10^3/uL (0.0-0.2); BASO % 1.1 % (0.0-1.0); EOS # 0.3 10^3/uL (0.0-0.5); EOS % 4.7 % (0.0-3.0); HEMATOCRIT 40.9 % (36.0-47.0); HEMOGLOBIN 12.8 g/dl (12.0-15.5); LYMPH # 1.8 10^3/uL (1.5-5.0); LYMPH % 26.8 % (24.0-44.0); MEAN CORPUSCULAR HEMOGLOBIN 30.3 pg (27.0-33.0); MEAN CORPUSCULAR HGB CONC 31.3 g/dl (32.0-36.5); MEAN CORPUSCULAR VOLUME 96.9 fl (80.0-96.0); MONO # 0.5 10^3/uL (0.0-0.8); MONO % 7.7 % (2.0-8.0); NEUTROPHILS # 3.9 10^3/uL (1.5-8.5); NEUTROPHILS % 59.4 % (36.0-66.0); PLATELET COUNT, AUTOMATED 252 10^3/uL (150-450); RED BLOOD COUNT 4.22 10^6/uL (4.00-5.40); WHITE BLOOD COUNT 6.6 10^3/uL (4.0-10.0)
[2023-07-13 11:55] LABS: ALBUMIN 3.5 G/DL (3.2-5.2); ALKALINE PHOSPHATASE 74 U/L (46-116); ALT/SGPT 10 U/L (7.0-40); AST/SGOT 11 U/L (<34); BILIRUBIN,TOTAL 0.2 MG/DL (0.3-1.2); BLOOD UREA NITROGEN 14 MG/DL (9-23); CALCIUM LEVEL 8.8 MG/DL (8.3-10.6); CARBON DIOXIDE LEVEL 27 MMOL/L (20-31); CHLORIDE LEVEL 113 MMOL/L (98-107); CREATININE FOR GFR 0.74 MG/DL (0.55-1.30); GLOMERULAR FILTRATION RATE > 60.0 (>39); GLUCOSE, FASTING 86 MG/DL (74-106); POTASSIUM SERUM 4.3 MMOL/L (3.5-5.1); SODIUM LEVEL 144 MMOL/L (136-145); TOTAL PROTEIN 6.1 G/DL (5.7-8.2)
== END ==
LOC: M WUC 08:16
PROVIDERS: ATTEND Physician Assistant
DX: R53.83 Other fatigue (principal); I26.99 Other pulmonary embolism without acute cor pulmonale; R79.9 Abnormal finding of blood chemistry, unspecified

== ENCOUNTER → 2024-01-01 | Outpatient (REF) | payer MEDICARE | LOC: M SFHCWAGY 12:57 | PROVIDERS: ATTEND Nurse Practitioner Family | DX: Z12.4 Encounter for screening for malignant neoplasm of cervix (principal); N95.2 Postmenopausal atrophic vaginitis | CPT/HCPCS: 87624; G0123 ==

== ENCOUNTER → 2024-01-01 | Outpatient (CLI) | payer MEDICARE | LOC: M WHC 08:13 | PROVIDERS: ATTEND Nurse Practitioner Family | DX: Z12.31 Encounter for screening mammogram for malignant neoplasm of breast (principal); R92.8 Other abnormal and inconclusive findings on diagnostic imaging of breast ==

== ENCOUNTER → 2024-01-13 | Outpatient (CLI) | payer MEDICARE ==
[2024-01-13 13:13] LABS: HEMATOCRIT 40.3 % (36.0-47.0); HEMOGLOBIN 12.5 g/dl (12.0-15.5); MEAN CORPUSCULAR HEMOGLOBIN 30.2 pg (27.0-33.0); MEAN CORPUSCULAR VOLUME 97.3 fl (80.0-96.0); PLATELET COUNT, AUTOMATED 253 10^3/uL (150-450); RED BLOOD COUNT 4.14 10^6/uL (4.00-5.40)
[2024-01-13 13:45] LABS: ALBUMIN 3.6 G/DL (3.2-5.2); ALKALINE PHOSPHATASE 68 U/L (46-116); ALT/SGPT 11 U/L (7.0-40); AST/SGOT < 8 U/L (<34); BILIRUBIN,TOTAL 0.2 MG/DL (0.3-1.2); BLOOD UREA NITROGEN 17 MG/DL (9-23); CALCIUM LEVEL 8.6 MG/DL (8.3-10.6); CARBON DIOXIDE LEVEL 26 MMOL/L (20-31); CHLORIDE LEVEL 116 MMOL/L (98-107); CHOLESTEROL LEVEL 171 MG/DL (<200); CHOLESTEROL RISK RATIO 2.47 (<5); CREATININE FOR GFR 0.69 MG/DL (0.55-1.30); GLOMERULAR FILTRATION RATE > 60.0 (>39); GLUCOSE, FASTING 89 MG/DL (74-106); HDL CHOLESTEROL 69.2 MG/DL (>40); LDL CHOLESTEROL 83.4 MG/DL (<100); NON-HDL-C 101.8 MG/DL; POTASSIUM SERUM 4.5 MMOL/L (3.5-5.1); SODIUM LEVEL 147 MMOL/L (136-145); TOTAL PROTEIN 6.3 G/DL (5.7-8.2); TRIGLYCERIDES LEVEL 92 MG/DL (<150)
[2024-01-14 07:56] LABS: WHITE BLOOD COUNT 9.4 10^3/uL (4.0-10.0)
== END ==
LOC: M WUC 09:02
PROVIDERS: ATTEND Physician Assistant
DX: Z98.84 Bariatric surgery status (principal); E66.9 Obesity, unspecified; Z79.01 Long term (current) use of anticoagulants; I26.99 Other pulmonary embolism without acute cor pulmonale

== ENCOUNTER → 2024-01-20 | Outpatient (CLI) | payer MEDICARE | LOC: M WHC 08:49 | PROVIDERS: ATTEND Nurse Practitioner Family | DX: R92.8 Other abnormal and inconclusive findings on diagnostic imaging of breast (principal) | CPT/HCPCS: 77065; G0279 ==

== ENCOUNTER → 2025-06-02 | Outpatient (CLI) | payer MEDICARE | LOC: M WHC 08:53 | PROVIDERS: ATTEND Physician Assistant | DX: Z12.31 Encounter for screening mammogram for malignant neoplasm of breast (principal); Z80.3 Family history of malignant neoplasm of breast; R92.323 Mammographic fibroglandular density, bilateral breasts ==